=== PATIENT | female | born 1935 | race Caucasian/White ===

== ENCOUNTER 2022-04-26 11:36 | Inpatient (IN) | payer MEDICARE, OTHER ==
[~2022-04-26] VITALS: Ht 165.1 cm; Wt 98.7 kg
[2022-04-26 12:57] VITALS: BP 142/85
[2022-04-26] MEDS ORDERED: POTA-151 PO (13:11)
[2022-04-26] MEDS ORDERED: METO100T5 PO (13:11)
[2022-04-26] MEDS ORDERED: LEVO25TA5 PO (13:11)
[2022-04-26] MEDS ORDERED: DOCU100C16 PO (13:11)
[2022-04-26] MEDS ORDERED: CYAN100050 PO (13:11)
[2022-04-26] MEDS ORDERED: FURO20TA2 PO (13:11)
[2022-04-26] MEDS ORDERED: ATOR80TA59 PO (13:11)
[2022-04-26] MEDS ORDERED: SENN-111 PO (13:11)
[2022-04-26] MEDS ORDERED: ASPI81TA26 PO (13:11)
[2022-04-26] MEDS ORDERED: VITMTA PO (13:11)
[2022-04-26] MEDS ORDERED: ELIQ5TAB PO (13:11)
[2022-04-26] MEDS ORDERED: KEPP1SOL PO (13:11)
[2022-04-26] MEDS ORDERED: HOME MED LIST COMPLETE! XX SCH (13:15)
[2022-04-26 13:38] VITALS: BP 132/79
[2022-04-26] MEDS ORDERED: ONDANSETRON 4MG TAB PO PRN (14:20)
[2022-04-26] MEDS ORDERED: ACETAMINOPHEN TAB 650MG DOSE (2X325MG) PO PRN (14:20)
[2022-04-26 15:42] LABS: INR 1.61; PROTHROMBIN TIME 19.4 SECONDS (12.5-14.5)
[2022-04-26 15:43] LABS: PARTIAL THROMBOPLASTIN TIME 44.6 SECONDS (24.8-34.2)
[2022-04-26] MEDS: REMEDY PHYTOPLEX Z-GUARD PASTE 113GM TUBE (FROM STOREROOM PRODUCT) TOP SCH ×2 (16:00→20:45)
[2022-04-26] MEDS: PANTOPRAZOLE 40MG TAB (PROTONIX) PO SCH ×2 (17:31→20:44)
[2022-04-26 19:30] VITALS: BP 129/61
[2022-04-26] MEDS: METOPROLOL TARTRATE 100MG TAB PO SCH (20:44)
[2022-04-26] MEDS: levETIRAcetam ORAL SOLUTION 500MG/5ML UDC PO SCH (20:44)
[2022-04-26] MEDS: ATORVASTATIN 20 MG TAB PO SCH (20:44)
[2022-04-26] MEDS: APIXABAN 5 MG TAB (ELIQUIS) PO SCH (20:45)
[2022-04-27 05:21] VITALS: BP 120/80
[2022-04-27] MEDS: LEVOTHYROXINE 25MCG TABLET (0.025MG) PO SCH (05:39)
[2022-04-27 06:17] LABS: BASO # 0.1 10^3/uL (0.0-0.2); BASO % 0.7 % (0.0-1.0); EOS # 0.3 10^3/uL (0.0-0.5); EOS % 2.1 % (0.0-3.0); HEMATOCRIT 41.3 % (36.0-47.0); HEMOGLOBIN 13.2 g/dl (12.0-15.5); LYMPH # 2.7 10^3/uL (1.5-5.0); LYMPH % 21.6 % (24.0-44.0); MEAN CORPUSCULAR HEMOGLOBIN 31.2 pg (27.0-33.0); MEAN CORPUSCULAR VOLUME 97.6 fl (80.0-96.0); MONO # 1.4 10^3/uL (0.0-0.8); MONO % 10.9 % (2.0-8.0); NEUTROPHILS % 64.2 % (36.0-66.0); PLATELET COUNT, AUTOMATED 288 10^3/uL (150-450); RED BLOOD COUNT 4.23 10^6/uL (4.00-5.40); WHITE BLOOD COUNT 12.5 10^3/uL (4.0-10.0)
[2022-04-27 06:32] LABS: ALBUMIN 1.7 G/DL (3.2-5.2); ALKALINE PHOSPHATASE 175 U/L (46-116); ALT/SGPT 89 U/L (7.0-40); AST/SGOT 71 U/L (<34); BILIRUBIN,TOTAL 0.8 MG/DL (0.3-1.2); BLOOD UREA NITROGEN 18 MG/DL (9-23); CARBON DIOXIDE LEVEL 30 MMOL/L (20-31); CHLORIDE LEVEL 103 MMOL/L (98-107); CREATININE FOR GFR 0.61 MG/DL (0.55-1.30); GLOMERULAR FILTRATION RATE > 60.0 (>32); GLUCOSE, FASTING 100 MG/DL (74-106); POTASSIUM SERUM 4.2 MMOL/L (3.5-5.1); SODIUM LEVEL 140 MMOL/L (136-145); TOTAL PROTEIN 5.6 G/DL (5.7-8.2)
[2022-04-27] MEDS: CYANOCOBALAMIN 500 MCG TAB PO SCH (08:35)
[2022-04-27] MEDS: METOPROLOL TARTRATE 100MG TAB PO SCH ×2 (08:35→21:19)
[2022-04-27] MEDS: MULTIVITAMINS/MINERALS THERAP 1 TAB PO SCH (08:35)
[2022-04-27] MEDS: levETIRAcetam ORAL SOLUTION 500MG/5ML UDC PO SCH (08:35)
[2022-04-27] MEDS: POTASSIUM CHLORIDE 10MEQ SR TABLET PO SCH (08:36)
[2022-04-27] MEDS: FUROSEMIDE 20 MG TAB PO SCH (08:36)
[2022-04-27] MEDS: ESCITALOPRAM OXALATE 10 MG TAB (LEXAPRO) PO SCH (08:36)
[2022-04-27] MEDS: PANTOPRAZOLE 40MG TAB (PROTONIX) PO SCH ×2 (08:37→21:19)
[2022-04-27] MEDS: ASPIRIN 81MG ENTERIC TABLET PO SCH (08:37)
[2022-04-27] MEDS: APIXABAN 5 MG TAB (ELIQUIS) PO SCH ×2 (08:37→21:20)
[2022-04-27] MEDS: REMEDY PHYTOPLEX Z-GUARD PASTE 113GM TUBE (FROM STOREROOM PRODUCT) TOP SCH ×3 (08:37→21:20)
[2022-04-27 14:00] VITALS: BP 132/75
[2022-04-27] MEDS: FLUTICASONE PROP 0.05% NASAL SPRAY 16 GM (FLONASE) NARES SCH ×2 (15:08→21:20)
[2022-04-27] MEDS: DICLOFENAC EPOLAMINE 1.3% PATCH TOP SCH ×2 (15:41→21:19)
[2022-04-27] MEDS: LACTOBACILLUS ACIDOPHILUS CAP (BACID) PO SCH (17:12)
[2022-04-27] MEDS: ACETAMINOPHEN 500 MG TAB PO SCH ×2 (17:12→21:19)
[2022-04-27] MEDS: SODIUM CHLORIDE NASAL 0.65% SPRAY BTL (OCEAN) SCH ×2 (17:14→21:20)
[2022-04-27] MEDS: SALIVA SUBSTITUTE(MOUTHKOTE) BTL MT SCH ×2 (17:14→21:17)
[2022-04-27] MEDS: CEFEPIME HCL 2 GM in D5W MINI-BAG PLUS 50 ML IV SCH (18:36)
[2022-04-27 20:00] VITALS: BP 132/84
[2022-04-27] MEDS: COMBIVENT RESPIMAT 100-20MCG INHALER 4GM INH SCH (20:30)
[2022-04-27] MEDS: ATORVASTATIN 20 MG TAB PO SCH (21:19)
[2022-04-28] MEDS: levETIRAcetam ORAL SOLUTION 500MG/5ML UDC PO SCH ×2 (00:39→15:17)
[2022-04-28] MEDS: CEFEPIME HCL 2 GM in D5W MINI-BAG PLUS 50 ML IV SCH ×3 (00:39→17:26)
[2022-04-28] MEDS ORDERED: LEVOTHYROXINE 25MCG TABLET (0.025MG) As Ordered ONE (05:26)
[2022-04-28] MEDS: LEVOTHYROXINE 25MCG TABLET (0.025MG) PO SCH (05:36)
[2022-04-28 06:00] VITALS: BP 136/92
[2022-04-28 07:01] LABS: BASO # 0.1 10^3/uL (0.0-0.2); BASO % 0.8 % (0.0-1.0); EOS # 0.3 10^3/uL (0.0-0.5); EOS % 2.3 % (0.0-3.0); HEMATOCRIT 41.3 % (36.0-47.0); LYMPH # 2.6 10^3/uL (1.5-5.0); LYMPH % 21.8 % (24.0-44.0); MEAN CORPUSCULAR HEMOGLOBIN 31.2 pg (27.0-33.0); MEAN CORPUSCULAR HGB CONC 31.5 g/dl (32.0-36.5); MONO # 1.2 10^3/uL (0.0-0.8); MONO % 9.8 % (2.0-8.0); NEUTROPHILS # 7.8 10^3/uL (1.5-8.5); NEUTROPHILS % 64.7 % (36.0-66.0); PLATELET COUNT, AUTOMATED 289 10^3/uL (150-450); RED BLOOD COUNT 4.17 10^6/uL (4.00-5.40); WHITE BLOOD COUNT 12.1 10^3/uL (4.0-10.0)
[2022-04-28] MEDS: COMBIVENT RESPIMAT 100-20MCG INHALER 4GM INH SCH ×3 (07:40→19:55)
[2022-04-28] MEDS: MULTIVITAMINS/MINERALS THERAP 1 TAB PO SCH (08:28)
[2022-04-28] MEDS: LACTOBACILLUS ACIDOPHILUS CAP (BACID) PO SCH ×3 (08:28→17:26)
[2022-04-28] MEDS: CYANOCOBALAMIN 500 MCG TAB PO SCH (08:28)
[2022-04-28] MEDS: POTASSIUM CHLORIDE 10MEQ SR TABLET PO SCH (08:29)
[2022-04-28] MEDS: ASPIRIN 81MG ENTERIC TABLET PO SCH (08:29)
[2022-04-28] MEDS: PANTOPRAZOLE 40MG TAB (PROTONIX) PO SCH ×2 (08:29→21:04)
[2022-04-28] MEDS: FUROSEMIDE 20 MG TAB PO SCH (08:29)
[2022-04-28] MEDS: APIXABAN 5 MG TAB (ELIQUIS) PO SCH ×2 (08:29→21:04)
[2022-04-28] MEDS: ACETAMINOPHEN 500 MG TAB PO SCH ×3 (08:30→21:03)
[2022-04-28] MEDS: METOPROLOL TARTRATE 100MG TAB PO SCH ×2 (08:30→21:03)
[2022-04-28] MEDS: ESCITALOPRAM OXALATE 10 MG TAB (LEXAPRO) PO SCH (08:30)
[2022-04-28] MEDS: SODIUM CHLORIDE NASAL 0.65% SPRAY BTL (OCEAN) SCH ×3 (08:31→21:05)
[2022-04-28] MEDS: DICLOFENAC EPOLAMINE 1.3% PATCH TOP SCH ×2 (08:31→21:05)
[2022-04-28] MEDS: SALIVA SUBSTITUTE(MOUTHKOTE) BTL MT SCH ×4 (08:31→21:05)
[2022-04-28] MEDS: FLUTICASONE PROP 0.05% NASAL SPRAY 16 GM (FLONASE) NARES SCH ×2 (08:31→21:04)
[2022-04-28] MEDS: REMEDY PHYTOPLEX Z-GUARD PASTE 113GM TUBE (FROM STOREROOM PRODUCT) TOP SCH ×3 (08:32→21:04)
[2022-04-28 14:00] VITALS: BP 119/72
[2022-04-28 20:00] VITALS: BP 132/60
[2022-04-28] MEDS: ATORVASTATIN 20 MG TAB PO SCH (21:04)
[2022-04-29] MEDS: levETIRAcetam ORAL SOLUTION 500MG/5ML UDC PO SCH ×3 (00:20→23:08)
[2022-04-29] MEDS: CEFEPIME HCL 2 GM in D5W MINI-BAG PLUS 50 ML IV SCH ×3 (01:24→16:58)
[2022-04-29 06:00] VITALS: BP 133/82
[2022-04-29] MEDS: LEVOTHYROXINE 25MCG TABLET (0.025MG) PO SCH (06:21)
[2022-04-29 06:43] LABS: BASO # 0.1 10^3/uL (0.0-0.2); BASO % 1.3 % (0.0-1.0); EOS # 0.2 10^3/uL (0.0-0.5); EOS % 2.5 % (0.0-3.0); HEMATOCRIT 42.3 % (36.0-47.0); HEMOGLOBIN 13.1 g/dl (12.0-15.5); LYMPH # 2.4 10^3/uL (1.5-5.0); LYMPH % 27.3 % (24.0-44.0); MEAN CORPUSCULAR HEMOGLOBIN 31.1 pg (27.0-33.0); MEAN CORPUSCULAR VOLUME 100.5 fl (80.0-96.0); MONO # 0.8 10^3/uL (0.0-0.8); MONO % 8.9 % (2.0-8.0); NEUTROPHILS # 5.2 10^3/uL (1.5-8.5); NEUTROPHILS % 59.4 % (36.0-66.0); PLATELET COUNT, AUTOMATED 292 10^3/uL (150-450); RED BLOOD COUNT 4.21 10^6/uL (4.00-5.40); WHITE BLOOD COUNT 8.7 10^3/uL (4.0-10.0)
[2022-04-29] MEDS: COMBIVENT RESPIMAT 100-20MCG INHALER 4GM INH SCH ×3 (07:11→20:00)
[2022-04-29 07:19] LABS: BLOOD UREA NITROGEN 20 MG/DL (9-23); CALCIUM LEVEL 8.4 MG/DL (8.3-10.6); CARBON DIOXIDE LEVEL 29 MMOL/L (20-31); CHLORIDE LEVEL 104 MMOL/L (98-107); CREATININE FOR GFR 0.71 MG/DL (0.55-1.30); GLOMERULAR FILTRATION RATE > 60.0 (>32); GLUCOSE, FASTING 98 MG/DL (74-106); POTASSIUM SERUM 5.2 MMOL/L (3.5-5.1); SODIUM LEVEL 140 MMOL/L (136-145)
[2022-04-29] MEDS: ASPIRIN 81MG ENTERIC TABLET PO SCH (08:30)
[2022-04-29] MEDS: LACTOBACILLUS ACIDOPHILUS CAP (BACID) PO SCH ×3 (08:30→16:58)
[2022-04-29] MEDS: CYANOCOBALAMIN 500 MCG TAB PO SCH (08:31)
[2022-04-29] MEDS: APIXABAN 5 MG TAB (ELIQUIS) PO SCH ×2 (08:31→21:25)
[2022-04-29] MEDS: ESCITALOPRAM OXALATE 10 MG TAB (LEXAPRO) PO SCH (08:31)
[2022-04-29] MEDS: ACETAMINOPHEN 500 MG TAB PO SCH ×3 (08:31→21:25)
[2022-04-29] MEDS: METOPROLOL TARTRATE 100MG TAB PO SCH ×2 (08:37→21:24)
[2022-04-29] MEDS: MULTIVITAMINS/MINERALS THERAP 1 TAB PO SCH (08:37)
[2022-04-29] MEDS: FUROSEMIDE 20 MG TAB PO SCH (08:37)
[2022-04-29] MEDS: PANTOPRAZOLE 40MG TAB (PROTONIX) PO SCH ×2 (08:37→21:25)
[2022-04-29] MEDS: FLUTICASONE PROP 0.05% NASAL SPRAY 16 GM (FLONASE) NARES SCH ×2 (08:38→21:26)
[2022-04-29] MEDS: SALIVA SUBSTITUTE(MOUTHKOTE) BTL MT SCH ×4 (08:38→23:08)
[2022-04-29] MEDS: SODIUM CHLORIDE NASAL 0.65% SPRAY BTL (OCEAN) SCH ×3 (08:38→21:26)
[2022-04-29] MEDS: POTASSIUM CHLORIDE 10MEQ SR TABLET PO SCH (08:38)
[2022-04-29] MEDS: DICLOFENAC EPOLAMINE 1.3% PATCH TOP SCH ×2 (08:39→21:24)
[2022-04-29] MEDS: REMEDY PHYTOPLEX Z-GUARD PASTE 113GM TUBE (FROM STOREROOM PRODUCT) TOP SCH ×3 (08:39→21:26)
[2022-04-29] MEDS: PATIROMER SORBITEX CALCIUM 8.4 GM POWDER PACKET (VELTASSA) PO SCH (12:11)
[2022-04-29 14:00] VITALS: BP 136/68
[2022-04-29 21:22] VITALS: BP 163/73
[2022-04-29] MEDS: ATORVASTATIN 20 MG TAB PO SCH (21:25)
[2022-04-30 05:58] VITALS: BP 126/75
[2022-04-30] MEDS: LevoFLOXacin 750 MG TABLET PO SCH (06:02)
[2022-04-30] MEDS: LEVOTHYROXINE 25MCG TABLET (0.025MG) PO SCH (06:02)
[2022-04-30 06:22] LABS: BLOOD UREA NITROGEN 22 MG/DL (9-23); CALCIUM LEVEL 8.3 MG/DL (8.3-10.6); CARBON DIOXIDE LEVEL 33 MMOL/L (20-31); CHLORIDE LEVEL 103 MMOL/L (98-107); CREATININE FOR GFR 0.78 MG/DL (0.55-1.30); GLOMERULAR FILTRATION RATE > 60.0 (>32); GLUCOSE, FASTING 103 MG/DL (74-106); POTASSIUM SERUM 4.5 MMOL/L (3.5-5.1); SODIUM LEVEL 139 MMOL/L (136-145)
[2022-04-30] MEDS: COMBIVENT RESPIMAT 100-20MCG INHALER 4GM INH SCH ×3 (07:15→20:00)
[2022-04-30] MEDS: ASPIRIN 81MG ENTERIC TABLET PO SCH (09:06)
[2022-04-30] MEDS: LACTOBACILLUS ACIDOPHILUS CAP (BACID) PO SCH ×3 (09:06→18:14)
[2022-04-30] MEDS: CYANOCOBALAMIN 500 MCG TAB PO SCH (09:06)
[2022-04-30] MEDS: MULTIVITAMINS/MINERALS THERAP 1 TAB PO SCH (09:06)
[2022-04-30] MEDS: PANTOPRAZOLE 40MG TAB (PROTONIX) PO SCH ×2 (09:07→20:52)
[2022-04-30] MEDS: APIXABAN 5 MG TAB (ELIQUIS) PO SCH ×2 (09:07→20:53)
[2022-04-30] MEDS: ESCITALOPRAM OXALATE 10 MG TAB (LEXAPRO) PO SCH (09:07)
[2022-04-30] MEDS: SALIVA SUBSTITUTE(MOUTHKOTE) BTL MT SCH ×4 (09:08→20:54)
[2022-04-30] MEDS: FUROSEMIDE 20 MG TAB PO SCH (09:08)
[2022-04-30] MEDS: ACETAMINOPHEN 500 MG TAB PO SCH ×3 (09:08→20:52)
[2022-04-30] MEDS: METOPROLOL TARTRATE 100MG TAB PO SCH ×2 (09:08→20:53)
[2022-04-30] MEDS: REMEDY PHYTOPLEX Z-GUARD PASTE 113GM TUBE (FROM STOREROOM PRODUCT) TOP SCH ×3 (09:09→20:53)
[2022-04-30] MEDS: FLUTICASONE PROP 0.05% NASAL SPRAY 16 GM (FLONASE) NARES SCH ×2 (09:09→20:54)
[2022-04-30] MEDS: SODIUM CHLORIDE NASAL 0.65% SPRAY BTL (OCEAN) SCH ×3 (09:09→20:54)
[2022-04-30] MEDS: DICLOFENAC EPOLAMINE 1.3% PATCH TOP SCH ×2 (09:10→20:53)
[2022-04-30] MEDS: PATIROMER SORBITEX CALCIUM 8.4 GM POWDER PACKET (VELTASSA) PO SCH (12:20)
[2022-04-30] MEDS: levETIRAcetam ORAL SOLUTION 500MG/5ML UDC PO SCH ×2 (15:10→23:40)
[2022-04-30 20:49] VITALS: BP 129/70
[2022-04-30] MEDS: ATORVASTATIN 20 MG TAB PO SCH (20:53)
[2022-05-01 05:17] VITALS: BP 150/70
[2022-05-01] MEDS: LevoFLOXacin 750 MG TABLET PO SCH (05:28)
[2022-05-01] MEDS: LEVOTHYROXINE 25MCG TABLET (0.025MG) PO SCH (05:28)
[2022-05-01] MEDS: APIXABAN 5 MG TAB (ELIQUIS) PO SCH ×2 (08:12→20:44)
[2022-05-01] MEDS: ASPIRIN 81MG ENTERIC TABLET PO SCH (08:12)
[2022-05-01] MEDS: PANTOPRAZOLE 40MG TAB (PROTONIX) PO SCH ×2 (08:12→20:43)
[2022-05-01] MEDS: DICLOFENAC EPOLAMINE 1.3% PATCH TOP SCH ×2 (08:13→20:44)
[2022-05-01] MEDS: ESCITALOPRAM OXALATE 10 MG TAB (LEXAPRO) PO SCH (08:13)
[2022-05-01] MEDS: MULTIVITAMINS/MINERALS THERAP 1 TAB PO SCH (08:13)
[2022-05-01] MEDS: FUROSEMIDE 20 MG TAB PO SCH (08:13)
[2022-05-01] MEDS: LACTOBACILLUS ACIDOPHILUS CAP (BACID) PO SCH ×3 (08:13→18:08)
[2022-05-01] MEDS: CYANOCOBALAMIN 500 MCG TAB PO SCH (08:13)
[2022-05-01] MEDS: ACETAMINOPHEN 500 MG TAB PO SCH ×3 (08:14→20:43)
[2022-05-01] MEDS: FLUTICASONE PROP 0.05% NASAL SPRAY 16 GM (FLONASE) NARES SCH ×2 (08:14→20:44)
[2022-05-01] MEDS: REMEDY PHYTOPLEX Z-GUARD PASTE 113GM TUBE (FROM STOREROOM PRODUCT) TOP SCH ×3 (08:14→20:45)
[2022-05-01] MEDS: SODIUM CHLORIDE NASAL 0.65% SPRAY BTL (OCEAN) SCH ×3 (08:14→20:44)
[2022-05-01] MEDS: METOPROLOL TARTRATE 100MG TAB PO SCH ×2 (08:14→20:43)
[2022-05-01] MEDS: SALIVA SUBSTITUTE(MOUTHKOTE) BTL MT SCH ×4 (08:15→20:44)
[2022-05-01] MEDS: COMBIVENT RESPIMAT 100-20MCG INHALER 4GM INH SCH ×3 (11:16→19:40)
[2022-05-01] MEDS: PATIROMER SORBITEX CALCIUM 8.4 GM POWDER PACKET (VELTASSA) PO SCH (12:26)
[2022-05-01 14:00] VITALS: BP 135/68
[2022-05-01] MEDS: levETIRAcetam ORAL SOLUTION 500MG/5ML UDC PO SCH ×2 (15:28→23:18)
[2022-05-01 20:35] VITALS: BP 140/75
[2022-05-01] MEDS: ATORVASTATIN 20 MG TAB PO SCH (20:43)
[2022-05-02] MEDS: LEVOTHYROXINE 25MCG TABLET (0.025MG) PO SCH (05:15)
[2022-05-02] MEDS: LevoFLOXacin 750 MG TABLET PO SCH (05:15)
[2022-05-02 06:00] VITALS: BP 130/80
[2022-05-02 06:22] LABS: BASO # 0.1 10^3/uL (0.0-0.2); BASO % 1.2 % (0.0-1.0); EOS # 0.2 10^3/uL (0.0-0.5); EOS % 2.5 % (0.0-3.0); HEMATOCRIT 42.9 % (36.0-47.0); HEMOGLOBIN 13.3 g/dl (12.0-15.5); LYMPH # 2.4 10^3/uL (1.5-5.0); MEAN CORPUSCULAR HEMOGLOBIN 30.7 pg (27.0-33.0); MEAN CORPUSCULAR VOLUME 99.1 fl (80.0-96.0); MONO # 0.6 10^3/uL (0.0-0.8); MONO % 9.6 % (2.0-8.0); NEUTROPHILS # 3.4 10^3/uL (1.5-8.5); NEUTROPHILS % 50.4 % (36.0-66.0); PLATELET COUNT, AUTOMATED 303 10^3/uL (150-450); RED BLOOD COUNT 4.33 10^6/uL (4.00-5.40); WHITE BLOOD COUNT 6.7 10^3/uL (4.0-10.0)
[2022-05-02 07:17] LABS: BLOOD UREA NITROGEN 14 MG/DL (9-23); CALCIUM LEVEL 8.4 MG/DL (8.3-10.6); CARBON DIOXIDE LEVEL 33 MMOL/L (20-31); CHLORIDE LEVEL 99 MMOL/L (98-107); GLOMERULAR FILTRATION RATE > 60.0 (>32); GLUCOSE, FASTING 98 MG/DL (74-106); POTASSIUM SERUM 4.3 MMOL/L (3.5-5.1); SODIUM LEVEL 137 MMOL/L (136-145)
[2022-05-02] MEDS: COMBIVENT RESPIMAT 100-20MCG INHALER 4GM INH SCH ×3 (08:02→19:49)
[2022-05-02] MEDS: LACTOBACILLUS ACIDOPHILUS CAP (BACID) PO SCH ×3 (08:46→17:35)
[2022-05-02] MEDS: METOPROLOL TARTRATE 100MG TAB PO SCH ×2 (08:46→20:34)
[2022-05-02] MEDS: ASPIRIN 81MG ENTERIC TABLET PO SCH (08:46)
[2022-05-02] MEDS: APIXABAN 5 MG TAB (ELIQUIS) PO SCH ×2 (08:46→20:34)
[2022-05-02] MEDS: MULTIVITAMINS/MINERALS THERAP 1 TAB PO SCH (08:46)
[2022-05-02] MEDS: FUROSEMIDE 20 MG TAB PO SCH (08:46)
[2022-05-02] MEDS: PANTOPRAZOLE 40MG TAB (PROTONIX) PO SCH ×2 (08:46→20:36)
[2022-05-02] MEDS: ESCITALOPRAM OXALATE 10 MG TAB (LEXAPRO) PO SCH (08:46)
[2022-05-02] MEDS: CYANOCOBALAMIN 500 MCG TAB PO SCH (08:47)
[2022-05-02] MEDS: ACETAMINOPHEN 500 MG TAB PO SCH ×3 (08:47→20:35)
[2022-05-02] MEDS: DICLOFENAC EPOLAMINE 1.3% PATCH TOP SCH ×2 (08:47→20:32)
[2022-05-02] MEDS: REMEDY PHYTOPLEX Z-GUARD PASTE 113GM TUBE (FROM STOREROOM PRODUCT) TOP SCH ×3 (08:47→20:36)
[2022-05-02] MEDS: SALIVA SUBSTITUTE(MOUTHKOTE) BTL MT SCH ×4 (08:47→20:35)
[2022-05-02] MEDS: SODIUM CHLORIDE NASAL 0.65% SPRAY BTL (OCEAN) SCH ×3 (08:48→20:35)
[2022-05-02] MEDS: FLUTICASONE PROP 0.05% NASAL SPRAY 16 GM (FLONASE) NARES SCH ×2 (08:48→20:35)
[2022-05-02 14:00] VITALS: BP 140/93
[2022-05-02] MEDS: levETIRAcetam ORAL SOLUTION 500MG/5ML UDC PO SCH ×2 (16:07→23:33)
[2022-05-02 20:00] VITALS: BP 127/62
[2022-05-02] MEDS: ATORVASTATIN 20 MG TAB PO SCH (20:34)
[2022-05-03] MEDS: LEVOTHYROXINE 25MCG TABLET (0.025MG) PO SCH (05:13)
[2022-05-03] MEDS: LevoFLOXacin 750 MG TABLET PO SCH (05:13)
[2022-05-03 06:04] VITALS: BP 131/75
[2022-05-03] MEDS: COMBIVENT RESPIMAT 100-20MCG INHALER 4GM INH SCH ×3 (08:23→20:57)
[2022-05-03] MEDS: MULTIVITAMINS/MINERALS THERAP 1 TAB PO SCH (09:43)
[2022-05-03] MEDS: ESCITALOPRAM OXALATE 10 MG TAB (LEXAPRO) PO SCH (09:43)
[2022-05-03] MEDS: CYANOCOBALAMIN 500 MCG TAB PO SCH (09:43)
[2022-05-03] MEDS: ASPIRIN 81MG ENTERIC TABLET PO SCH (09:43)
[2022-05-03] MEDS: METOPROLOL TARTRATE 100MG TAB PO SCH ×2 (09:44→20:46)
[2022-05-03] MEDS: FUROSEMIDE 20 MG TAB PO SCH (09:44)
[2022-05-03] MEDS: ACETAMINOPHEN 500 MG TAB PO SCH ×3 (09:44→20:45)
[2022-05-03] MEDS: DICLOFENAC EPOLAMINE 1.3% PATCH TOP SCH ×2 (09:45→20:47)
[2022-05-03] MEDS: APIXABAN 5 MG TAB (ELIQUIS) PO SCH ×2 (09:45→20:45)
[2022-05-03] MEDS: SALIVA SUBSTITUTE(MOUTHKOTE) BTL MT SCH ×4 (09:45→20:46)
[2022-05-03] MEDS: LACTOBACILLUS ACIDOPHILUS CAP (BACID) PO SCH ×3 (09:45→17:37)
[2022-05-03] MEDS: PANTOPRAZOLE 40MG TAB (PROTONIX) PO SCH ×2 (09:45→20:45)
[2022-05-03] MEDS: SODIUM CHLORIDE NASAL 0.65% SPRAY BTL (OCEAN) SCH ×3 (09:46→20:47)
[2022-05-03] MEDS: REMEDY PHYTOPLEX Z-GUARD PASTE 113GM TUBE (FROM STOREROOM PRODUCT) TOP SCH ×3 (09:46→20:47)
[2022-05-03] MEDS: FLUTICASONE PROP 0.05% NASAL SPRAY 16 GM (FLONASE) NARES SCH ×2 (09:46→20:47)
[2022-05-03] MEDS: levETIRAcetam ORAL SOLUTION 500MG/5ML UDC PO SCH (15:17)
[2022-05-03 15:46] VITALS: BP 109/61
[2022-05-03 19:50] VITALS: BP 116/56
[2022-05-03] MEDS: SENOKOT S TAB PO PRN (20:45)
[2022-05-03] MEDS: ATORVASTATIN 20 MG TAB PO SCH (20:45)
[2022-05-04] MEDS: levETIRAcetam ORAL SOLUTION 500MG/5ML UDC PO SCH ×2 (00:19→15:13)
[2022-05-04] MEDS: LEVOTHYROXINE 25MCG TABLET (0.025MG) PO SCH (05:43)
[2022-05-04 05:46] VITALS: BP 130/69
[2022-05-04 06:51] LABS: BASO # 0.1 10^3/uL (0.0-0.2); BASO % 1.2 % (0.0-1.0); EOS # 0.1 10^3/uL (0.0-0.5); EOS % 2.2 % (0.0-3.0); HEMATOCRIT 40.6 % (36.0-47.0); HEMOGLOBIN 12.9 g/dl (12.0-15.5); LYMPH # 2.2 10^3/uL (1.5-5.0); LYMPH % 34.4 % (24.0-44.0); MEAN CORPUSCULAR HEMOGLOBIN 31.2 pg (27.0-33.0); MEAN CORPUSCULAR HGB CONC 31.8 g/dl (32.0-36.5); MEAN CORPUSCULAR VOLUME 98.1 fl (80.0-96.0); MONO # 0.7 10^3/uL (0.0-0.8); MONO % 10.8 % (2.0-8.0); NEUTROPHILS # 3.3 10^3/uL (1.5-8.5); NEUTROPHILS % 51.1 % (36.0-66.0); PLATELET COUNT, AUTOMATED 261 10^3/uL (150-450); RED BLOOD COUNT 4.14 10^6/uL (4.00-5.40); WHITE BLOOD COUNT 6.5 10^3/uL (4.0-10.0)
[2022-05-04 07:19] LABS: BLOOD UREA NITROGEN 13 MG/DL (9-23); CALCIUM LEVEL 8.7 MG/DL (8.3-10.6); CARBON DIOXIDE LEVEL 32 MMOL/L (20-31); CHLORIDE LEVEL 99 MMOL/L (98-107); GLOMERULAR FILTRATION RATE > 60.0 (>32); GLUCOSE, FASTING 93 MG/DL (74-106); POTASSIUM SERUM 3.9 MMOL/L (3.5-5.1); SODIUM LEVEL 137 MMOL/L (136-145)
[2022-05-04] MEDS: COMBIVENT RESPIMAT 100-20MCG INHALER 4GM INH SCH ×3 (07:43→19:41)
[2022-05-04] MEDS: ESCITALOPRAM OXALATE 10 MG TAB (LEXAPRO) PO SCH (07:53)
[2022-05-04] MEDS: APIXABAN 5 MG TAB (ELIQUIS) PO SCH ×2 (07:54→21:23)
[2022-05-04] MEDS: LACTOBACILLUS ACIDOPHILUS CAP (BACID) PO SCH ×3 (07:55→17:17)
[2022-05-04] MEDS: METOPROLOL TARTRATE 100MG TAB PO SCH ×2 (07:55→21:23)
[2022-05-04] MEDS: MULTIVITAMINS/MINERALS THERAP 1 TAB PO SCH (07:55)
[2022-05-04] MEDS: CYANOCOBALAMIN 500 MCG TAB PO SCH (07:55)
[2022-05-04] MEDS: ASPIRIN 81MG ENTERIC TABLET PO SCH (07:55)
[2022-05-04] MEDS: PANTOPRAZOLE 40MG TAB (PROTONIX) PO SCH ×2 (07:55→21:22)
[2022-05-04] MEDS: FUROSEMIDE 20 MG TAB PO SCH (07:55)
[2022-05-04] MEDS: FLUTICASONE PROP 0.05% NASAL SPRAY 16 GM (FLONASE) NARES SCH ×2 (07:56→21:23)
[2022-05-04] MEDS: SALIVA SUBSTITUTE(MOUTHKOTE) BTL MT SCH ×4 (07:56→21:23)
[2022-05-04] MEDS: DICLOFENAC EPOLAMINE 1.3% PATCH TOP SCH ×2 (07:56→21:41)
[2022-05-04] MEDS: REMEDY PHYTOPLEX Z-GUARD PASTE 113GM TUBE (FROM STOREROOM PRODUCT) TOP SCH ×3 (07:57→21:24)
[2022-05-04] MEDS: ACETAMINOPHEN 500 MG TAB PO SCH ×3 (07:57→21:00)
[2022-05-04] MEDS: SODIUM CHLORIDE NASAL 0.65% SPRAY BTL (OCEAN) SCH ×3 (07:57→21:24)
[2022-05-04 14:00] VITALS: BP 128/64
[2022-05-04 20:33] VITALS: BP 131/70
[2022-05-04] MEDS: ATORVASTATIN 20 MG TAB PO SCH (21:23)
[2022-05-05] MEDS: levETIRAcetam ORAL SOLUTION 500MG/5ML UDC PO SCH ×3 (00:11→23:51)
[2022-05-05] MEDS: LEVOTHYROXINE 25MCG TABLET (0.025MG) PO SCH (05:51)
[2022-05-05 06:04] VITALS: BP 124/80
[2022-05-05] MEDS: COMBIVENT RESPIMAT 100-20MCG INHALER 4GM INH SCH ×2 (07:42→19:58)
[2022-05-05] MEDS: METOPROLOL TARTRATE 100MG TAB PO SCH ×2 (08:59→21:09)
[2022-05-05] MEDS: ASPIRIN 81MG ENTERIC TABLET PO SCH (08:59)
[2022-05-05] MEDS: LACTOBACILLUS ACIDOPHILUS CAP (BACID) PO SCH ×3 (08:59→17:05)
[2022-05-05] MEDS: MULTIVITAMINS/MINERALS THERAP 1 TAB PO SCH (08:59)
[2022-05-05] MEDS: APIXABAN 5 MG TAB (ELIQUIS) PO SCH ×2 (08:59→21:09)
[2022-05-05] MEDS: PANTOPRAZOLE 40MG TAB (PROTONIX) PO SCH ×2 (08:59→21:10)
[2022-05-05] MEDS: ESCITALOPRAM OXALATE 5MG TABLET (LEXAPRO) PO SCH (08:59)
[2022-05-05] MEDS: CYANOCOBALAMIN 500 MCG TAB PO SCH (08:59)
[2022-05-05] MEDS: ACETAMINOPHEN 500 MG TAB PO SCH ×3 (09:00→21:11)
[2022-05-05] MEDS: REMEDY PHYTOPLEX Z-GUARD PASTE 113GM TUBE (FROM STOREROOM PRODUCT) TOP SCH ×3 (09:00→21:11)
[2022-05-05] MEDS: FUROSEMIDE 20 MG TAB PO SCH (09:00)
[2022-05-05] MEDS: DICLOFENAC EPOLAMINE 1.3% PATCH TOP SCH ×2 (09:01→21:10)
[2022-05-05] MEDS: SALIVA SUBSTITUTE(MOUTHKOTE) BTL MT SCH ×4 (09:01→21:11)
[2022-05-05] MEDS: SODIUM CHLORIDE NASAL 0.65% SPRAY BTL (OCEAN) SCH ×3 (09:01→21:11)
[2022-05-05] MEDS: FLUTICASONE PROP 0.05% NASAL SPRAY 16 GM (FLONASE) NARES SCH ×2 (09:01→21:11)
[2022-05-05 14:00] VITALS: BP 108/55
[2022-05-05 20:06] VITALS: BP 125/60
[2022-05-05] MEDS: ATORVASTATIN 20 MG TAB PO SCH (21:10)
[2022-05-06] MEDS: LEVOTHYROXINE 25MCG TABLET (0.025MG) PO SCH (05:28)
[2022-05-06 05:45] VITALS: BP 112/61
[2022-05-06 06:07] LABS: BASO # 0.1 10^3/uL (0.0-0.2); BASO % 0.8 % (0.0-1.0); EOS # 0.2 10^3/uL (0.0-0.5); EOS % 2.1 % (0.0-3.0); HEMATOCRIT 40.1 % (36.0-47.0); HEMOGLOBIN 12.7 g/dl (12.0-15.5); LYMPH # 2.4 10^3/uL (1.5-5.0); LYMPH % 33.6 % (24.0-44.0); MEAN CORPUSCULAR HEMOGLOBIN 31.4 pg (27.0-33.0); MEAN CORPUSCULAR HGB CONC 31.7 g/dl (32.0-36.5); MEAN CORPUSCULAR VOLUME 99.3 fl (80.0-96.0); MONO # 0.8 10^3/uL (0.0-0.8); MONO % 10.9 % (2.0-8.0); NEUTROPHILS # 3.8 10^3/uL (1.5-8.5); NEUTROPHILS % 52.2 % (36.0-66.0); PLATELET COUNT, AUTOMATED 213 10^3/uL (150-450); RED BLOOD COUNT 4.04 10^6/uL (4.00-5.40); WHITE BLOOD COUNT 7.2 10^3/uL (4.0-10.0)
[2022-05-06 06:39] LABS: BLOOD UREA NITROGEN 17 MG/DL (9-23); CALCIUM LEVEL 8.3 MG/DL (8.3-10.6); CARBON DIOXIDE LEVEL 32 MMOL/L (20-31); CHLORIDE LEVEL 100 MMOL/L (98-107); CREATININE FOR GFR 0.75 MG/DL (0.55-1.30); GLOMERULAR FILTRATION RATE > 60.0 (>32); GLUCOSE, FASTING 106 MG/DL (74-106); POTASSIUM SERUM 3.7 MMOL/L (3.5-5.1); SODIUM LEVEL 139 MMOL/L (136-145)
[2022-05-06] MEDS: COMBIVENT RESPIMAT 100-20MCG INHALER 4GM INH SCH ×3 (08:00→19:54)
[2022-05-06] MEDS: SODIUM CHLORIDE NASAL 0.65% SPRAY BTL (OCEAN) SCH ×3 (09:00→21:00)
[2022-05-06] MEDS: REMEDY PHYTOPLEX Z-GUARD PASTE 113GM TUBE (FROM STOREROOM PRODUCT) TOP SCH ×3 (09:00→21:08)
[2022-05-06] MEDS: FLUTICASONE PROP 0.05% NASAL SPRAY 16 GM (FLONASE) NARES SCH ×2 (09:00→21:00)
[2022-05-06] MEDS: ACETAMINOPHEN 500 MG TAB PO SCH ×3 (09:00→21:00)
[2022-05-06] MEDS: ASPIRIN 81MG ENTERIC TABLET PO SCH (09:07)
[2022-05-06] MEDS: ESCITALOPRAM OXALATE 5MG TABLET (LEXAPRO) PO SCH (09:07)
[2022-05-06] MEDS: LACTOBACILLUS ACIDOPHILUS CAP (BACID) PO SCH ×3 (09:07→17:49)
[2022-05-06] MEDS: APIXABAN 5 MG TAB (ELIQUIS) PO SCH ×2 (09:08→21:06)
[2022-05-06] MEDS: METOPROLOL TARTRATE 100MG TAB PO SCH ×2 (09:08→21:06)
[2022-05-06] MEDS: CYANOCOBALAMIN 500 MCG TAB PO SCH (09:08)
[2022-05-06] MEDS: FUROSEMIDE 20 MG TAB PO SCH (09:08)
[2022-05-06] MEDS: PANTOPRAZOLE 40MG TAB (PROTONIX) PO SCH ×2 (09:08→21:07)
[2022-05-06] MEDS: MULTIVITAMINS/MINERALS THERAP 1 TAB PO SCH (09:08)
[2022-05-06] MEDS: DICLOFENAC EPOLAMINE 1.3% PATCH TOP SCH ×2 (09:09→21:08)
[2022-05-06] MEDS: SALIVA SUBSTITUTE(MOUTHKOTE) BTL MT SCH ×4 (09:09→21:07)
[2022-05-06 14:02] VITALS: BP 115/59
[2022-05-06] MEDS: levETIRAcetam ORAL SOLUTION 500MG/5ML UDC PO SCH (16:01)
[2022-05-06 20:00] VITALS: BP 110/58
[2022-05-06] MEDS: ATORVASTATIN 20 MG TAB PO SCH (21:06)
[2022-05-07] MEDS: levETIRAcetam ORAL SOLUTION 500MG/5ML UDC PO SCH ×3 (00:15→23:13)
[2022-05-07] MEDS: LEVOTHYROXINE 25MCG TABLET (0.025MG) PO SCH (05:27)
[2022-05-07 06:00] VITALS: BP 118/58
[2022-05-07] MEDS: COMBIVENT RESPIMAT 100-20MCG INHALER 4GM INH SCH ×2 (08:05→20:21)
[2022-05-07] MEDS: LACTOBACILLUS ACIDOPHILUS CAP (BACID) PO SCH ×3 (08:08→19:00)
[2022-05-07] MEDS: SALIVA SUBSTITUTE(MOUTHKOTE) BTL MT SCH ×4 (08:09→21:00)
[2022-05-07] MEDS: ASPIRIN 81MG ENTERIC TABLET PO SCH (08:09)
[2022-05-07] MEDS: APIXABAN 5 MG TAB (ELIQUIS) PO SCH ×2 (08:11→21:21)
[2022-05-07] MEDS: FUROSEMIDE 40 MG TAB PO SCH ×2 (08:12→09:00)
[2022-05-07] MEDS: ESCITALOPRAM OXALATE 5MG TABLET (LEXAPRO) PO SCH (08:13)
[2022-05-07] MEDS: MULTIVITAMINS/MINERALS THERAP 1 TAB PO SCH (08:13)
[2022-05-07] MEDS: PANTOPRAZOLE 40MG TAB (PROTONIX) PO SCH ×2 (08:13→21:21)
[2022-05-07] MEDS: METOPROLOL TARTRATE 100MG TAB PO SCH ×2 (08:13→21:00)
[2022-05-07] MEDS: SODIUM CHLORIDE NASAL 0.65% SPRAY BTL (OCEAN) SCH ×3 (08:14→21:00)
[2022-05-07] MEDS: CYANOCOBALAMIN 500 MCG TAB PO SCH (08:14)
[2022-05-07] MEDS: ACETAMINOPHEN 500 MG TAB PO SCH ×3 (08:14→21:00)
[2022-05-07] MEDS: FLUTICASONE PROP 0.05% NASAL SPRAY 16 GM (FLONASE) NARES SCH ×2 (08:15→21:00)
[2022-05-07] MEDS: DICLOFENAC EPOLAMINE 1.3% PATCH TOP SCH ×2 (08:15→21:22)
[2022-05-07] MEDS: REMEDY PHYTOPLEX Z-GUARD PASTE 113GM TUBE (FROM STOREROOM PRODUCT) TOP SCH ×3 (08:15→21:22)
[2022-05-07 14:00] VITALS: BP 100/59
[2022-05-07 20:00] VITALS: BP 88/56
[2022-05-07 21:10] VITALS: BP 90/60
[2022-05-07] MEDS: ATORVASTATIN 20 MG TAB PO SCH (21:21)
[2022-05-07 23:00] VITALS: BP 90/58
[2022-05-08 04:05] VITALS: BP 112/62
[2022-05-08] MEDS: LEVOTHYROXINE 25MCG TABLET (0.025MG) PO SCH (05:19)
[2022-05-08 06:00] VITALS: BP 112/62
[2022-05-08] MEDS: COMBIVENT RESPIMAT 100-20MCG INHALER 4GM INH SCH ×3 (08:00→19:09)
[2022-05-08] MEDS: FUROSEMIDE 40 MG TAB PO SCH ×2 (09:00→10:08)
[2022-05-08] MEDS: METOPROLOL TARTRATE 100MG TAB PO SCH ×2 (09:00→20:51)
[2022-05-08] MEDS: SALIVA SUBSTITUTE(MOUTHKOTE) BTL MT SCH ×4 (10:07→20:51)
[2022-05-08] MEDS: ASPIRIN 81MG ENTERIC TABLET PO SCH (10:07)
[2022-05-08] MEDS: APIXABAN 5 MG TAB (ELIQUIS) PO SCH ×2 (10:07→20:49)
[2022-05-08] MEDS: LACTOBACILLUS ACIDOPHILUS CAP (BACID) PO SCH ×3 (10:07→17:48)
[2022-05-08] MEDS: ACETAMINOPHEN 500 MG TAB PO SCH ×3 (10:08→21:00)
[2022-05-08] MEDS: ESCITALOPRAM OXALATE 5MG TABLET (LEXAPRO) PO SCH (10:08)
[2022-05-08] MEDS: CYANOCOBALAMIN 500 MCG TAB PO SCH (10:09)
[2022-05-08] MEDS: PANTOPRAZOLE 40MG TAB (PROTONIX) PO SCH ×2 (10:09→20:49)
[2022-05-08] MEDS: MULTIVITAMINS/MINERALS THERAP 1 TAB PO SCH (10:09)
[2022-05-08] MEDS: FLUTICASONE PROP 0.05% NASAL SPRAY 16 GM (FLONASE) NARES SCH ×2 (10:11→20:50)
[2022-05-08] MEDS: SODIUM CHLORIDE NASAL 0.65% SPRAY BTL (OCEAN) SCH ×3 (10:11→20:50)
[2022-05-08] MEDS: DICLOFENAC EPOLAMINE 1.3% PATCH TOP SCH ×2 (10:12→20:50)
[2022-05-08] MEDS: REMEDY PHYTOPLEX Z-GUARD PASTE 113GM TUBE (FROM STOREROOM PRODUCT) TOP SCH ×3 (10:12→21:00)
[2022-05-08 14:33] VITALS: BP 131/69
[2022-05-08] MEDS: levETIRAcetam ORAL SOLUTION 500MG/5ML UDC PO SCH ×2 (15:08→23:08)
[2022-05-08 20:00] VITALS: BP_SYST 102; BP_SYST 88; BP_DIAS 51; BP_DIAS 60
[2022-05-08] MEDS ORDERED: NS 1,000 ML IV SCH (20:20)
[2022-05-08] MEDS: ATORVASTATIN 20 MG TAB PO SCH (20:50)
[2022-05-09 05:55] VITALS: BP 122/58
[2022-05-09] MEDS: LEVOTHYROXINE 25MCG TABLET (0.025MG) PO SCH (06:18)
[2022-05-09] MEDS: COMBIVENT RESPIMAT 100-20MCG INHALER 4GM INH SCH ×3 (07:23→21:13)
[2022-05-09] MEDS: DICLOFENAC EPOLAMINE 1.3% PATCH TOP SCH ×2 (08:25→20:16)
[2022-05-09] MEDS: LACTOBACILLUS ACIDOPHILUS CAP (BACID) PO SCH ×3 (08:25→17:04)
[2022-05-09] MEDS: CYANOCOBALAMIN 500 MCG TAB PO SCH (08:26)
[2022-05-09] MEDS: ACETAMINOPHEN 500 MG TAB PO SCH ×4 (08:26→20:15)
[2022-05-09] MEDS: ASPIRIN 81MG ENTERIC TABLET PO SCH (08:26)
[2022-05-09] MEDS: APIXABAN 5 MG TAB (ELIQUIS) PO SCH ×2 (08:26→20:14)
[2022-05-09] MEDS: MULTIVITAMINS/MINERALS THERAP 1 TAB PO SCH (08:26)
[2022-05-09] MEDS: PANTOPRAZOLE 40MG TAB (PROTONIX) PO SCH ×2 (08:26→20:14)
[2022-05-09] MEDS: ESCITALOPRAM OXALATE 5MG TABLET (LEXAPRO) PO SCH (08:27)
[2022-05-09] MEDS: SALIVA SUBSTITUTE(MOUTHKOTE) BTL MT SCH ×4 (08:27→20:16)
[2022-05-09] MEDS: METOPROLOL TARTRATE 100MG TAB PO SCH ×2 (08:27→20:15)
[2022-05-09] MEDS: FUROSEMIDE 40 MG TAB PO SCH (08:27)
[2022-05-09] MEDS: REMEDY PHYTOPLEX Z-GUARD PASTE 113GM TUBE (FROM STOREROOM PRODUCT) TOP SCH ×3 (08:28→20:16)
[2022-05-09] MEDS: FLUTICASONE PROP 0.05% NASAL SPRAY 16 GM (FLONASE) NARES SCH ×2 (08:28→20:16)
[2022-05-09] MEDS: SODIUM CHLORIDE NASAL 0.65% SPRAY BTL (OCEAN) SCH ×3 (08:28→20:15)
[2022-05-09 10:35] LABS: BASO # 0.1 10^3/uL (0.0-0.2); EOS # 0.1 10^3/uL (0.0-0.5); EOS % 1.6 % (0.0-3.0); HEMATOCRIT 40.4 % (36.0-47.0); HEMOGLOBIN 12.7 g/dl (12.0-15.5); LYMPH # 2.4 10^3/uL (1.5-5.0); LYMPH % 33.9 % (24.0-44.0); MEAN CORPUSCULAR HEMOGLOBIN 31.5 pg (27.0-33.0); MEAN CORPUSCULAR HGB CONC 31.4 g/dl (32.0-36.5); MEAN CORPUSCULAR VOLUME 100.2 fl (80.0-96.0); MONO # 0.8 10^3/uL (0.0-0.8); MONO % 11.6 % (2.0-8.0); NEUTROPHILS # 3.7 10^3/uL (1.5-8.5); NEUTROPHILS % 51.8 % (36.0-66.0); PLATELET COUNT, AUTOMATED 178 10^3/uL (150-450); RED BLOOD COUNT 4.03 10^6/uL (4.00-5.40); WHITE BLOOD COUNT 7.1 10^3/uL (4.0-10.0)
[2022-05-09 11:12] LABS: BLOOD UREA NITROGEN 13 MG/DL (9-23); CARBON DIOXIDE LEVEL 26 MMOL/L (20-31); CHLORIDE LEVEL 101 MMOL/L (98-107); CREATININE FOR GFR 0.68 MG/DL (0.55-1.30); GLOMERULAR FILTRATION RATE > 60.0 (>32); GLUCOSE, FASTING 99 MG/DL (74-106); POTASSIUM SERUM 4.2 MMOL/L (3.5-5.1); SODIUM LEVEL 137 MMOL/L (136-145)
[2022-05-09 14:03] VITALS: BP 124/62
[2022-05-09] MEDS: levETIRAcetam ORAL SOLUTION 500MG/5ML UDC PO SCH ×2 (15:38→23:55)
[2022-05-09 20:00] VITALS: BP 132/82
[2022-05-09] MEDS: ATORVASTATIN 20 MG TAB PO SCH (20:15)
[2022-05-10 05:42] VITALS: BP 145/88
[2022-05-10] MEDS: LEVOTHYROXINE 25MCG TABLET (0.025MG) PO SCH (06:15)
[2022-05-10] MEDS: COMBIVENT RESPIMAT 100-20MCG INHALER 4GM INH SCH ×3 (08:13→20:10)
[2022-05-10] MEDS: ASPIRIN 81MG ENTERIC TABLET PO SCH (08:18)
[2022-05-10] MEDS: ESCITALOPRAM OXALATE 5MG TABLET (LEXAPRO) PO SCH (08:18)
[2022-05-10] MEDS: CYANOCOBALAMIN 500 MCG TAB PO SCH (08:18)
[2022-05-10] MEDS: MULTIVITAMINS/MINERALS THERAP 1 TAB PO SCH (08:18)
[2022-05-10] MEDS: APIXABAN 5 MG TAB (ELIQUIS) PO SCH ×2 (08:19→20:27)
[2022-05-10] MEDS: LACTOBACILLUS ACIDOPHILUS CAP (BACID) PO SCH ×3 (08:19→16:56)
[2022-05-10] MEDS: PANTOPRAZOLE 40MG TAB (PROTONIX) PO SCH ×2 (08:19→20:28)
[2022-05-10] MEDS: FUROSEMIDE 40 MG TAB PO SCH (08:19)
[2022-05-10] MEDS: ACETAMINOPHEN 500 MG TAB PO SCH ×3 (08:19→20:28)
[2022-05-10] MEDS: SALIVA SUBSTITUTE(MOUTHKOTE) BTL MT SCH ×4 (08:20→20:29)
[2022-05-10] MEDS: DICLOFENAC EPOLAMINE 1.3% PATCH TOP SCH ×2 (08:20→20:27)
[2022-05-10] MEDS: FLUTICASONE PROP 0.05% NASAL SPRAY 16 GM (FLONASE) NARES SCH ×2 (08:21→20:29)
[2022-05-10] MEDS: METOPROLOL TARTRATE 100MG TAB PO SCH ×3 (08:21→21:00)
[2022-05-10] MEDS: REMEDY PHYTOPLEX Z-GUARD PASTE 113GM TUBE (FROM STOREROOM PRODUCT) TOP SCH ×3 (08:21→20:29)
[2022-05-10] MEDS: SODIUM CHLORIDE NASAL 0.65% SPRAY BTL (OCEAN) SCH ×3 (08:21→20:29)
[2022-05-10 14:30] VITALS: BP 104/57
[2022-05-10] MEDS: levETIRAcetam ORAL SOLUTION 500MG/5ML UDC PO SCH ×2 (16:56→23:57)
[2022-05-10 20:00] VITALS: BP 102/74
[2022-05-10] MEDS: ATORVASTATIN 20 MG TAB PO SCH (20:27)
[2022-05-11 06:00] VITALS: BP 101/59
[2022-05-11] MEDS: LEVOTHYROXINE 25MCG TABLET (0.025MG) PO SCH (06:16)
[2022-05-11 07:29] LABS: BASO # 0.1 10^3/uL (0.0-0.2); BASO % 0.8 % (0.0-1.0); EOS # 0.2 10^3/uL (0.0-0.5); EOS % 2.3 % (0.0-3.0); HEMATOCRIT 37.3 % (36.0-47.0); LYMPH # 2.1 10^3/uL (1.5-5.0); LYMPH % 29.6 % (24.0-44.0); MEAN CORPUSCULAR HEMOGLOBIN 31.4 pg (27.0-33.0); MEAN CORPUSCULAR HGB CONC 32.2 g/dl (32.0-36.5); MEAN CORPUSCULAR VOLUME 97.6 fl (80.0-96.0); MONO # 0.7 10^3/uL (0.0-0.8); MONO % 9.9 % (2.0-8.0); NEUTROPHILS # 4.1 10^3/uL (1.5-8.5); NEUTROPHILS % 57.3 % (36.0-66.0); PLATELET COUNT, AUTOMATED 164 10^3/uL (150-450); RED BLOOD COUNT 3.82 10^6/uL (4.00-5.40); WHITE BLOOD COUNT 7.1 10^3/uL (4.0-10.0)
[2022-05-11 07:57] LABS: BLOOD UREA NITROGEN 14 MG/DL (9-23); CALCIUM LEVEL 8.4 MG/DL (8.3-10.6); CARBON DIOXIDE LEVEL 35 MMOL/L (20-31); CHLORIDE LEVEL 102 MMOL/L (98-107); GLOMERULAR FILTRATION RATE > 60.0 (>32); GLUCOSE, FASTING 91 MG/DL (74-106); POTASSIUM SERUM 4.1 MMOL/L (3.5-5.1); SODIUM LEVEL 140 MMOL/L (136-145)
[2022-05-11] MEDS: ACETAMINOPHEN 500 MG TAB PO SCH ×3 (09:00→20:25)
[2022-05-11] MEDS: FUROSEMIDE 40 MG TAB PO SCH (09:00)
[2022-05-11] MEDS: METOPROLOL TARTRATE 100MG TAB PO SCH ×2 (09:00→20:26)
[2022-05-11] MEDS: ASPIRIN 81MG ENTERIC TABLET PO SCH (09:07)
[2022-05-11] MEDS: PANTOPRAZOLE 40MG TAB (PROTONIX) PO SCH ×2 (09:07→20:25)
[2022-05-11] MEDS: DICLOFENAC EPOLAMINE 1.3% PATCH TOP SCH ×2 (09:07→20:26)
[2022-05-11] MEDS: CYANOCOBALAMIN 500 MCG TAB PO SCH (09:07)
[2022-05-11] MEDS: MULTIVITAMINS/MINERALS THERAP 1 TAB PO SCH (09:08)
[2022-05-11] MEDS: APIXABAN 5 MG TAB (ELIQUIS) PO SCH ×2 (09:08→20:26)
[2022-05-11] MEDS: ESCITALOPRAM OXALATE 5MG TABLET (LEXAPRO) PO SCH (09:08)
[2022-05-11] MEDS: LACTOBACILLUS ACIDOPHILUS CAP (BACID) PO SCH ×3 (09:11→18:00)
[2022-05-11] MEDS: SODIUM CHLORIDE NASAL 0.65% SPRAY BTL (OCEAN) SCH ×3 (09:12→20:27)
[2022-05-11] MEDS: SALIVA SUBSTITUTE(MOUTHKOTE) BTL MT SCH ×4 (09:12→20:25)
[2022-05-11] MEDS: FLUTICASONE PROP 0.05% NASAL SPRAY 16 GM (FLONASE) NARES SCH ×2 (09:12→20:26)
[2022-05-11] MEDS: REMEDY PHYTOPLEX Z-GUARD PASTE 113GM TUBE (FROM STOREROOM PRODUCT) TOP SCH ×3 (09:13→20:29)
[2022-05-11] MEDS: COMBIVENT RESPIMAT 100-20MCG INHALER 4GM INH SCH ×3 (09:30→20:17)
[2022-05-11 14:00] VITALS: BP 145/81
[2022-05-11] MEDS: levETIRAcetam ORAL SOLUTION 500MG/5ML UDC PO SCH ×2 (14:29→23:44)
[2022-05-11] MEDS: ATORVASTATIN 20 MG TAB PO SCH (20:26)
[2022-05-11 21:08] VITALS: BP 116/63
[2022-05-12 05:56] VITALS: BP 112/57
[2022-05-12] MEDS: LEVOTHYROXINE 25MCG TABLET (0.025MG) PO SCH (06:49)
[2022-05-12] MEDS: COMBIVENT RESPIMAT 100-20MCG INHALER 4GM INH SCH ×3 (07:34→20:00)
[2022-05-12] MEDS: MULTIVITAMINS/MINERALS THERAP 1 TAB PO SCH (08:32)
[2022-05-12] MEDS: CYANOCOBALAMIN 500 MCG TAB PO SCH (08:32)
[2022-05-12] MEDS: DICLOFENAC EPOLAMINE 1.3% PATCH TOP SCH ×2 (08:32→21:54)
[2022-05-12] MEDS: LACTOBACILLUS ACIDOPHILUS CAP (BACID) PO SCH ×3 (08:32→17:39)
[2022-05-12] MEDS: PANTOPRAZOLE 40MG TAB (PROTONIX) PO SCH ×2 (08:32→21:53)
[2022-05-12] MEDS: ASPIRIN 81MG ENTERIC TABLET PO SCH (08:32)
[2022-05-12] MEDS: ESCITALOPRAM OXALATE 5MG TABLET (LEXAPRO) PO SCH (08:32)
[2022-05-12] MEDS: APIXABAN 5 MG TAB (ELIQUIS) PO SCH ×2 (08:32→21:53)
[2022-05-12] MEDS: FUROSEMIDE 40 MG TAB PO SCH (08:33)
[2022-05-12] MEDS: METOPROLOL TARTRATE 100MG TAB PO SCH ×2 (08:33→21:53)
[2022-05-12] MEDS: FLUTICASONE PROP 0.05% NASAL SPRAY 16 GM (FLONASE) NARES SCH ×2 (08:34→21:00)
[2022-05-12] MEDS: SALIVA SUBSTITUTE(MOUTHKOTE) BTL MT SCH ×4 (08:34→21:54)
[2022-05-12] MEDS: SODIUM CHLORIDE NASAL 0.65% SPRAY BTL (OCEAN) SCH ×3 (08:34→21:00)
[2022-05-12] MEDS: REMEDY PHYTOPLEX Z-GUARD PASTE 113GM TUBE (FROM STOREROOM PRODUCT) TOP SCH ×3 (08:35→21:55)
[2022-05-12] MEDS: ACETAMINOPHEN 500 MG TAB PO SCH ×3 (08:35→21:00)
[2022-05-12 14:00] VITALS: BP 102/54
[2022-05-12] MEDS: levETIRAcetam ORAL SOLUTION 500MG/5ML UDC PO SCH (16:00)
[2022-05-12 20:00] VITALS: BP 121/63
[2022-05-12] MEDS: SENOKOT S TAB PO PRN (21:53)
[2022-05-12] MEDS: ATORVASTATIN 20 MG TAB PO SCH (21:53)
[2022-05-13] MEDS: levETIRAcetam ORAL SOLUTION 500MG/5ML UDC PO SCH ×2 (00:21→15:26)
[2022-05-13] MEDS: LEVOTHYROXINE 25MCG TABLET (0.025MG) PO SCH (05:20)
[2022-05-13 06:00] VITALS: BP 143/73
[2022-05-13 06:20] LABS: BASO # 0.1 10^3/uL (0.0-0.2); EOS # 0.2 10^3/uL (0.0-0.5); EOS % 3.9 % (0.0-3.0); HEMATOCRIT 38.3 % (36.0-47.0); HEMOGLOBIN 12.1 g/dl (12.0-15.5); LYMPH # 2.5 10^3/uL (1.5-5.0); LYMPH % 42.3 % (24.0-44.0); MEAN CORPUSCULAR HEMOGLOBIN 31.5 pg (27.0-33.0); MEAN CORPUSCULAR HGB CONC 31.6 g/dl (32.0-36.5); MEAN CORPUSCULAR VOLUME 99.7 fl (80.0-96.0); MONO # 0.7 10^3/uL (0.0-0.8); MONO % 12.6 % (2.0-8.0); NEUTROPHILS # 2.4 10^3/uL (1.5-8.5); PLATELET COUNT, AUTOMATED 167 10^3/uL (150-450); RED BLOOD COUNT 3.84 10^6/uL (4.00-5.40); WHITE BLOOD COUNT 5.9 10^3/uL (4.0-10.0)
[2022-05-13 06:40] LABS: BLOOD UREA NITROGEN 14 MG/DL (9-23); CALCIUM LEVEL 8.4 MG/DL (8.3-10.6); CARBON DIOXIDE LEVEL 33 MMOL/L (20-31); CHLORIDE LEVEL 103 MMOL/L (98-107); GLOMERULAR FILTRATION RATE > 60.0 (>32); GLUCOSE, FASTING 93 MG/DL (74-106); POTASSIUM SERUM 3.6 MMOL/L (3.5-5.1); SODIUM LEVEL 141 MMOL/L (136-145)
[2022-05-13] MEDS: COMBIVENT RESPIMAT 100-20MCG INHALER 4GM INH SCH ×3 (07:24→20:22)
[2022-05-13] MEDS: LACTOBACILLUS ACIDOPHILUS CAP (BACID) PO SCH ×3 (08:58→17:31)
[2022-05-13] MEDS: CYANOCOBALAMIN 500 MCG TAB PO SCH (08:58)
[2022-05-13] MEDS: ESCITALOPRAM OXALATE 5MG TABLET (LEXAPRO) PO SCH (08:58)
[2022-05-13] MEDS: PANTOPRAZOLE 40MG TAB (PROTONIX) PO SCH ×2 (08:58→21:21)
[2022-05-13] MEDS: ASPIRIN 81MG ENTERIC TABLET PO SCH (08:59)
[2022-05-13] MEDS: ACETAMINOPHEN 500 MG TAB PO SCH ×3 (08:59→21:00)
[2022-05-13] MEDS: MULTIVITAMINS/MINERALS THERAP 1 TAB PO SCH (08:59)
[2022-05-13] MEDS: METOPROLOL TARTRATE 100MG TAB PO SCH (08:59)
[2022-05-13] MEDS: APIXABAN 5 MG TAB (ELIQUIS) PO SCH ×2 (08:59→21:21)
[2022-05-13] MEDS: FUROSEMIDE 40 MG TAB PO SCH ×2 (09:00→12:41)
[2022-05-13] MEDS: FLUTICASONE PROP 0.05% NASAL SPRAY 16 GM (FLONASE) NARES SCH ×2 (09:00→21:22)
[2022-05-13] MEDS: REMEDY PHYTOPLEX Z-GUARD PASTE 113GM TUBE (FROM STOREROOM PRODUCT) TOP SCH ×3 (09:00→21:22)
[2022-05-13] MEDS: SODIUM CHLORIDE NASAL 0.65% SPRAY BTL (OCEAN) SCH ×3 (09:00→21:24)
[2022-05-13] MEDS: SALIVA SUBSTITUTE(MOUTHKOTE) BTL MT SCH ×4 (09:01→21:21)
[2022-05-13] MEDS: DICLOFENAC EPOLAMINE 1.3% PATCH TOP SCH ×2 (09:01→21:22)
[2022-05-13] MEDS: METOPROLOL TART 50 MG TAB PO SCH ×2 (12:41→17:31)
[2022-05-13 14:00] VITALS: BP 138/73
[2022-05-13 20:00] VITALS: BP 148/76
[2022-05-13] MEDS ORDERED: METOPROLOL TARTRATE 100MG TAB PO SCH (21:00)
[2022-05-13] MEDS: ATORVASTATIN 20 MG TAB PO SCH (21:21)
[2022-05-14] MEDS: levETIRAcetam ORAL SOLUTION 500MG/5ML UDC PO SCH ×3 (00:13→23:58)
[2022-05-14 05:45] VITALS: BP 108/72
[2022-05-14] MEDS: METOPROLOL TART 50 MG TAB PO SCH ×5 (06:00→23:58)
[2022-05-14] MEDS: LEVOTHYROXINE 25MCG TABLET (0.025MG) PO SCH (06:07)
[2022-05-14] MEDS: COMBIVENT RESPIMAT 100-20MCG INHALER 4GM INH SCH ×3 (07:17→21:52)
[2022-05-14] MEDS: LACTOBACILLUS ACIDOPHILUS CAP (BACID) PO SCH ×3 (08:17→17:45)
[2022-05-14] MEDS: MULTIVITAMINS/MINERALS THERAP 1 TAB PO SCH (08:17)
[2022-05-14] MEDS: CYANOCOBALAMIN 500 MCG TAB PO SCH (08:17)
[2022-05-14] MEDS: ASPIRIN 81MG ENTERIC TABLET PO SCH (08:17)
[2022-05-14] MEDS: ESCITALOPRAM OXALATE 5MG TABLET (LEXAPRO) PO SCH (08:17)
[2022-05-14] MEDS: DICLOFENAC EPOLAMINE 1.3% PATCH TOP SCH ×2 (08:18→20:38)
[2022-05-14] MEDS: ACETAMINOPHEN 500 MG TAB PO SCH ×3 (08:18→20:39)
[2022-05-14] MEDS: APIXABAN 5 MG TAB (ELIQUIS) PO SCH ×2 (08:18→20:38)
[2022-05-14] MEDS: FLUTICASONE PROP 0.05% NASAL SPRAY 16 GM (FLONASE) NARES SCH ×2 (08:19→20:39)
[2022-05-14] MEDS: PANTOPRAZOLE 40MG TAB (PROTONIX) PO SCH ×2 (08:19→20:38)
[2022-05-14] MEDS: SODIUM CHLORIDE NASAL 0.65% SPRAY BTL (OCEAN) SCH ×3 (08:19→20:39)
[2022-05-14] MEDS: SALIVA SUBSTITUTE(MOUTHKOTE) BTL MT SCH ×4 (08:19→20:38)
[2022-05-14] MEDS: REMEDY PHYTOPLEX Z-GUARD PASTE 113GM TUBE (FROM STOREROOM PRODUCT) TOP SCH ×3 (08:20→20:40)
[2022-05-14] MEDS: FUROSEMIDE 40 MG TAB PO SCH (12:30)
[2022-05-14 13:34] VITALS: BP 112/59
[2022-05-14 20:00] VITALS: BP 110/74
[2022-05-14] MEDS: ATORVASTATIN 20 MG TAB PO SCH (20:38)
[2022-05-14 23:58] VITALS: BP 102/65
[2022-05-15] MEDS: LEVOTHYROXINE 25MCG TABLET (0.025MG) PO SCH (05:57)
[2022-05-15] MEDS: METOPROLOL TART 50 MG TAB PO SCH (05:58)
[2022-05-15 06:00] VITALS: BP 112/68
[2022-05-15] MEDS: COMBIVENT RESPIMAT 100-20MCG INHALER 4GM INH SCH ×3 (07:21→20:50)
[2022-05-15] MEDS: MULTIVITAMINS/MINERALS THERAP 1 TAB PO SCH (07:34)
[2022-05-15] MEDS: DICLOFENAC EPOLAMINE 1.3% PATCH TOP SCH ×2 (07:35→20:58)
[2022-05-15] MEDS: LACTOBACILLUS ACIDOPHILUS CAP (BACID) PO SCH ×3 (07:35→17:19)
[2022-05-15] MEDS: ACETAMINOPHEN 500 MG TAB PO SCH ×3 (07:35→20:57)
[2022-05-15] MEDS: CYANOCOBALAMIN 500 MCG TAB PO SCH (07:35)
[2022-05-15] MEDS: PANTOPRAZOLE 40MG TAB (PROTONIX) PO SCH ×2 (07:36→20:56)
[2022-05-15] MEDS: ASPIRIN 81MG ENTERIC TABLET PO SCH (07:36)
[2022-05-15] MEDS: APIXABAN 5 MG TAB (ELIQUIS) PO SCH ×2 (07:36→20:56)
[2022-05-15] MEDS: SALIVA SUBSTITUTE(MOUTHKOTE) BTL MT SCH ×4 (07:36→20:57)
[2022-05-15] MEDS: ESCITALOPRAM OXALATE 5MG TABLET (LEXAPRO) PO SCH (07:36)
[2022-05-15] MEDS: SODIUM CHLORIDE NASAL 0.65% SPRAY BTL (OCEAN) SCH ×3 (07:36→20:57)
[2022-05-15] MEDS: FLUTICASONE PROP 0.05% NASAL SPRAY 16 GM (FLONASE) NARES SCH ×2 (07:37→20:57)
[2022-05-15] MEDS: REMEDY PHYTOPLEX Z-GUARD PASTE 113GM TUBE (FROM STOREROOM PRODUCT) TOP SCH ×3 (07:37→20:58)
[2022-05-15] MEDS: FUROSEMIDE 40 MG TAB PO SCH (12:04)
[2022-05-15 13:53] VITALS: BP 116/61
[2022-05-15] MEDS: METOPROLOL TART 25 MG TABLET PO SCH ×2 (14:29→22:00)
[2022-05-15] MEDS: levETIRAcetam ORAL SOLUTION 500MG/5ML UDC PO SCH ×2 (14:29→23:53)
[2022-05-15 20:00] VITALS: BP 117/57
[2022-05-15] MEDS: ATORVASTATIN 20 MG TAB PO SCH (20:56)
[2022-05-16] MEDS: LEVOTHYROXINE 25MCG TABLET (0.025MG) PO SCH (05:33)
[2022-05-16] MEDS: METOPROLOL TART 25 MG TABLET PO SCH ×3 (05:33→22:00)
[2022-05-16 06:00] VITALS: BP 106/57
[2022-05-16 06:38] LABS: BASO # 0.1 10^3/uL (0.0-0.2); EOS # 0.2 10^3/uL (0.0-0.5); EOS % 3.7 % (0.0-3.0); HEMATOCRIT 37.9 % (36.0-47.0); LYMPH # 2.9 10^3/uL (1.5-5.0); LYMPH % 48.4 % (24.0-44.0); MEAN CORPUSCULAR HEMOGLOBIN 31.9 pg (27.0-33.0); MEAN CORPUSCULAR HGB CONC 31.7 g/dl (32.0-36.5); MEAN CORPUSCULAR VOLUME 100.8 fl (80.0-96.0); MONO # 0.7 10^3/uL (0.0-0.8); MONO % 12.1 % (2.0-8.0); NEUTROPHILS % 34.5 % (36.0-66.0); PLATELET COUNT, AUTOMATED 169 10^3/uL (150-450); RED BLOOD COUNT 3.76 10^6/uL (4.00-5.40); WHITE BLOOD COUNT 5.9 10^3/uL (4.0-10.0)
[2022-05-16 06:49] LABS: BLOOD UREA NITROGEN 13 MG/DL (9-23); CALCIUM LEVEL 8.3 MG/DL (8.3-10.6); CARBON DIOXIDE LEVEL 34 MMOL/L (20-31); CHLORIDE LEVEL 101 MMOL/L (98-107); CREATININE FOR GFR 0.87 MG/DL (0.55-1.30); GLOMERULAR FILTRATION RATE > 60.0 (>32); GLUCOSE, FASTING 110 MG/DL (74-106); POTASSIUM SERUM 3.7 MMOL/L (3.5-5.1); SODIUM LEVEL 141 MMOL/L (136-145)
[2022-05-16] MEDS: COMBIVENT RESPIMAT 100-20MCG INHALER 4GM INH SCH ×3 (08:00→20:00)
[2022-05-16] MEDS: PANTOPRAZOLE 40MG TAB (PROTONIX) PO SCH (08:32)
[2022-05-16] MEDS: DICLOFENAC EPOLAMINE 1.3% PATCH TOP SCH ×2 (08:32→20:15)
[2022-05-16] MEDS: APIXABAN 5 MG TAB (ELIQUIS) PO SCH ×2 (08:32→20:15)
[2022-05-16] MEDS: ASPIRIN 81MG ENTERIC TABLET PO SCH (08:32)
[2022-05-16] MEDS: ACETAMINOPHEN 500 MG TAB PO SCH ×3 (08:32→20:15)
[2022-05-16] MEDS: LACTOBACILLUS ACIDOPHILUS CAP (BACID) PO SCH ×3 (08:32→17:07)
[2022-05-16] MEDS: SALIVA SUBSTITUTE(MOUTHKOTE) BTL MT SCH ×4 (08:32→20:15)
[2022-05-16] MEDS: ESCITALOPRAM OXALATE 5MG TABLET (LEXAPRO) PO SCH (08:32)
[2022-05-16] MEDS: MULTIVITAMINS/MINERALS THERAP 1 TAB PO SCH (08:32)
[2022-05-16] MEDS: CYANOCOBALAMIN 500 MCG TAB PO SCH (08:32)
[2022-05-16] MEDS: FLUTICASONE PROP 0.05% NASAL SPRAY 16 GM (FLONASE) NARES SCH ×2 (08:33→20:16)
[2022-05-16] MEDS: REMEDY PHYTOPLEX Z-GUARD PASTE 113GM TUBE (FROM STOREROOM PRODUCT) TOP SCH ×3 (08:33→20:17)
[2022-05-16] MEDS: SODIUM CHLORIDE NASAL 0.65% SPRAY BTL (OCEAN) SCH ×3 (08:33→20:16)
[2022-05-16] MEDS: FUROSEMIDE 40 MG TAB PO SCH (11:31)
[2022-05-16 14:00] VITALS: BP 123/63
[2022-05-16] MEDS: levETIRAcetam ORAL SOLUTION 500MG/5ML UDC PO SCH ×2 (14:01→23:11)
[2022-05-16 19:52] VITALS: BP 125/61
[2022-05-16] MEDS: ATORVASTATIN 20 MG TAB PO SCH (20:15)
[2022-05-17 05:55] VITALS: BP 106/57
[2022-05-17] MEDS: LEVOTHYROXINE 25MCG TABLET (0.025MG) PO SCH (05:59)
[2022-05-17] MEDS: METOPROLOL TART 25 MG TABLET PO SCH ×3 (06:00→20:35)
[2022-05-17] MEDS: COMBIVENT RESPIMAT 100-20MCG INHALER 4GM INH SCH ×3 (08:00→20:02)
[2022-05-17] MEDS: REMEDY PHYTOPLEX Z-GUARD PASTE 113GM TUBE (FROM STOREROOM PRODUCT) TOP SCH ×3 (08:09→20:34)
[2022-05-17] MEDS: ASPIRIN 81MG ENTERIC TABLET PO SCH (08:58)
[2022-05-17] MEDS: PANTOPRAZOLE 40MG TAB (PROTONIX) PO SCH (08:58)
[2022-05-17] MEDS: ESCITALOPRAM OXALATE 5MG TABLET (LEXAPRO) PO SCH (08:58)
[2022-05-17] MEDS: APIXABAN 5 MG TAB (ELIQUIS) PO SCH ×2 (08:59→20:32)
[2022-05-17] MEDS: DICLOFENAC EPOLAMINE 1.3% PATCH TOP SCH ×2 (08:59→20:34)
[2022-05-17] MEDS: CYANOCOBALAMIN 500 MCG TAB PO SCH (08:59)
[2022-05-17] MEDS: LACTOBACILLUS ACIDOPHILUS CAP (BACID) PO SCH ×3 (08:59→16:46)
[2022-05-17] MEDS: MULTIVITAMINS/MINERALS THERAP 1 TAB PO SCH (08:59)
[2022-05-17] MEDS: SODIUM CHLORIDE NASAL 0.65% SPRAY BTL (OCEAN) SCH ×3 (09:00→20:33)
[2022-05-17] MEDS: ACETAMINOPHEN 500 MG TAB PO SCH ×3 (09:00→20:33)
[2022-05-17] MEDS: FLUTICASONE PROP 0.05% NASAL SPRAY 16 GM (FLONASE) NARES SCH ×2 (09:00→20:33)
[2022-05-17] MEDS: SALIVA SUBSTITUTE(MOUTHKOTE) BTL MT SCH ×4 (09:00→20:33)
[2022-05-17] MEDS: FUROSEMIDE 40 MG TAB PO SCH (12:01)
[2022-05-17 14:00] VITALS: BP 107/59
[2022-05-17] MEDS: levETIRAcetam ORAL SOLUTION 500MG/5ML UDC PO SCH (16:45)
[2022-05-17 20:00] VITALS: BP 129/72
[2022-05-17] MEDS: ATORVASTATIN 20 MG TAB PO SCH (20:33)
[2022-05-18] MEDS: levETIRAcetam ORAL SOLUTION 500MG/5ML UDC PO SCH ×3 (00:48→23:56)
[2022-05-18] MEDS: METOPROLOL TART 25 MG TABLET PO SCH ×3 (05:46→20:22)
[2022-05-18] MEDS: LEVOTHYROXINE 25MCG TABLET (0.025MG) PO SCH (05:46)
[2022-05-18 06:00] VITALS: BP 106/56
[2022-05-18] MEDS: ACETAMINOPHEN 500 MG TAB PO SCH ×3 (08:30→20:19)
[2022-05-18] MEDS: MULTIVITAMINS/MINERALS THERAP 1 TAB PO SCH (08:30)
[2022-05-18] MEDS: LACTOBACILLUS ACIDOPHILUS CAP (BACID) PO SCH ×3 (08:30→17:06)
[2022-05-18] MEDS: PANTOPRAZOLE 40MG TAB (PROTONIX) PO SCH (08:30)
[2022-05-18] MEDS: APIXABAN 5 MG TAB (ELIQUIS) PO SCH (08:31)
[2022-05-18] MEDS: CYANOCOBALAMIN 500 MCG TAB PO SCH (08:31)
[2022-05-18] MEDS: ASPIRIN 81MG ENTERIC TABLET PO SCH (08:32)
[2022-05-18] MEDS: SODIUM CHLORIDE NASAL 0.65% SPRAY BTL (OCEAN) SCH ×3 (08:32→20:20)
[2022-05-18] MEDS: FLUTICASONE PROP 0.05% NASAL SPRAY 16 GM (FLONASE) NARES SCH ×2 (08:32→20:20)
[2022-05-18] MEDS: REMEDY PHYTOPLEX Z-GUARD PASTE 113GM TUBE (FROM STOREROOM PRODUCT) TOP SCH ×3 (08:32→20:20)
[2022-05-18] MEDS: ESCITALOPRAM OXALATE 5MG TABLET (LEXAPRO) PO SCH (08:33)
[2022-05-18] MEDS: DICLOFENAC EPOLAMINE 1.3% PATCH TOP SCH (08:33)
[2022-05-18] MEDS: SALIVA SUBSTITUTE(MOUTHKOTE) BTL MT SCH ×4 (08:34→20:20)
[2022-05-18] MEDS: COMBIVENT RESPIMAT 100-20MCG INHALER 4GM INH SCH ×3 (09:15→20:20)
[2022-05-18 10:58] LABS: BASO # 0.1 10^3/uL (0.0-0.2); BASO % 1.1 % (0.0-1.0); EOS # 0.2 10^3/uL (0.0-0.5); EOS % 3.6 % (0.0-3.0); HEMATOCRIT 36.6 % (36.0-47.0); HEMOGLOBIN 11.7 g/dl (12.0-15.5); LYMPH # 2.3 10^3/uL (1.5-5.0); LYMPH % 42.1 % (24.0-44.0); MEAN CORPUSCULAR HEMOGLOBIN 32.3 pg (27.0-33.0); MEAN CORPUSCULAR VOLUME 101.1 fl (80.0-96.0); MONO # 0.6 10^3/uL (0.0-0.8); MONO % 11.4 % (2.0-8.0); NEUTROPHILS # 2.2 10^3/uL (1.5-8.5); NEUTROPHILS % 41.6 % (36.0-66.0); RED BLOOD COUNT 3.62 10^6/uL (4.00-5.40); WHITE BLOOD COUNT 5.4 10^3/uL (4.0-10.0)
[2022-05-18 11:31] LABS: BLOOD UREA NITROGEN 11 MG/DL (9-23); CALCIUM LEVEL 8.1 MG/DL (8.3-10.6); CARBON DIOXIDE LEVEL 29 MMOL/L (20-31); CHLORIDE LEVEL 102 MMOL/L (98-107); CREATININE FOR GFR 0.65 MG/DL (0.55-1.30); GLOMERULAR FILTRATION RATE > 60.0 (>32); GLUCOSE, FASTING 124 MG/DL (74-106); SODIUM LEVEL 138 MMOL/L (136-145)
[2022-05-18] MEDS: FUROSEMIDE 40 MG TAB PO SCH (11:48)
[2022-05-18 11:54] LABS: PLATELET COUNT, AUTOMATED 62 10^3/uL (150-450)
[2022-05-18 14:52] VITALS: BP 121/65
[2022-05-18] MEDS: SUCRALFATE SUSP 1GM/10ML UD PO SCH (17:06)
[2022-05-18 20:00] VITALS: BP 111/53
[2022-05-18] MEDS: ATORVASTATIN 20 MG TAB PO SCH (20:19)
[2022-05-18] MEDS: APIXABAN 2.5 MG TAB (ELIQUIS) PO SCH (20:19)
[2022-05-19 06:00] VITALS: BP 136/68
[2022-05-19] MEDS: LEVOTHYROXINE 25MCG TABLET (0.025MG) PO SCH (06:13)
[2022-05-19] MEDS: METOPROLOL TART 25 MG TABLET PO SCH ×3 (06:14→20:46)
[2022-05-19 06:51] LABS: BASO # 0.1 10^3/uL (0.0-0.2); BASO % 0.9 % (0.0-1.0); EOS # 0.4 10^3/uL (0.0-0.5); EOS % 6.2 % (0.0-3.0); HEMATOCRIT 36.3 % (36.0-47.0); HEMOGLOBIN 11.7 g/dl (12.0-15.5); LYMPH # 2.6 10^3/uL (1.5-5.0); MEAN CORPUSCULAR HEMOGLOBIN 32.1 pg (27.0-33.0); MEAN CORPUSCULAR HGB CONC 32.2 g/dl (32.0-36.5); MEAN CORPUSCULAR VOLUME 99.7 fl (80.0-96.0); MONO # 0.8 10^3/uL (0.0-0.8); MONO % 12.2 % (2.0-8.0); NEUTROPHILS # 2.5 10^3/uL (1.5-8.5); NEUTROPHILS % 39.5 % (36.0-66.0); PLATELET COUNT, AUTOMATED 143 10^3/uL (150-450); RED BLOOD COUNT 3.64 10^6/uL (4.00-5.40); WHITE BLOOD COUNT 6.4 10^3/uL (4.0-10.0)
[2022-05-19] MEDS: COMBIVENT RESPIMAT 100-20MCG INHALER 4GM INH SCH ×3 (07:22→20:25)
[2022-05-19] MEDS: MULTIVITAMINS/MINERALS THERAP 1 TAB PO SCH (08:29)
[2022-05-19] MEDS: SUCRALFATE SUSP 1GM/10ML UD PO SCH ×3 (08:29→17:06)
[2022-05-19] MEDS: ACETAMINOPHEN 500 MG TAB PO SCH ×3 (08:29→20:43)
[2022-05-19] MEDS: LACTOBACILLUS ACIDOPHILUS CAP (BACID) PO SCH ×3 (08:29→17:06)
[2022-05-19] MEDS: REMEDY PHYTOPLEX Z-GUARD PASTE 113GM TUBE (FROM STOREROOM PRODUCT) TOP SCH ×3 (08:30→20:44)
[2022-05-19] MEDS: ESCITALOPRAM OXALATE 10 MG TAB (LEXAPRO) PO SCH (08:30)
[2022-05-19] MEDS: APIXABAN 2.5 MG TAB (ELIQUIS) PO SCH ×2 (08:30→20:42)
[2022-05-19] MEDS: SODIUM CHLORIDE NASAL 0.65% SPRAY BTL (OCEAN) SCH ×3 (08:30→20:43)
[2022-05-19] MEDS: CYANOCOBALAMIN 500 MCG TAB PO SCH (08:30)
[2022-05-19] MEDS: SALIVA SUBSTITUTE(MOUTHKOTE) BTL MT SCH ×4 (08:30→20:43)
[2022-05-19] MEDS: FLUTICASONE PROP 0.05% NASAL SPRAY 16 GM (FLONASE) NARES SCH ×2 (08:31→20:43)
[2022-05-19] MEDS: FUROSEMIDE 40 MG TAB PO SCH (12:08)
[2022-05-19 14:00] VITALS: BP 109/58
[2022-05-19] MEDS: levETIRAcetam ORAL SOLUTION 500MG/5ML UDC PO SCH (15:36)
[2022-05-19 20:00] VITALS: BP 136/70
[2022-05-19] MEDS: ATORVASTATIN 20 MG TAB PO SCH (20:43)
[2022-05-20] MEDS: levETIRAcetam ORAL SOLUTION 500MG/5ML UDC PO SCH ×3 (00:03→23:46)
[2022-05-20 05:11] VITALS: BP 112/66
[2022-05-20] MEDS: LEVOTHYROXINE 25MCG TABLET (0.025MG) PO SCH (05:12)
[2022-05-20] MEDS: METOPROLOL TART 25 MG TABLET PO SCH ×3 (05:13→21:58)
[2022-05-20] MEDS: COMBIVENT RESPIMAT 100-20MCG INHALER 4GM INH SCH ×3 (07:24→20:00)
[2022-05-20] MEDS: ACETAMINOPHEN 500 MG TAB PO SCH ×4 (08:40→21:00)
[2022-05-20] MEDS: LACTOBACILLUS ACIDOPHILUS CAP (BACID) PO SCH ×3 (08:40→17:33)
[2022-05-20] MEDS: ESCITALOPRAM OXALATE 10 MG TAB (LEXAPRO) PO SCH (08:40)
[2022-05-20] MEDS: CYANOCOBALAMIN 500 MCG TAB PO SCH (08:40)
[2022-05-20] MEDS: MULTIVITAMINS/MINERALS THERAP 1 TAB PO SCH (08:40)
[2022-05-20] MEDS: APIXABAN 2.5 MG TAB (ELIQUIS) PO SCH ×2 (08:40→20:48)
[2022-05-20] MEDS: SALIVA SUBSTITUTE(MOUTHKOTE) BTL MT SCH ×4 (08:41→20:48)
[2022-05-20] MEDS: REMEDY PHYTOPLEX Z-GUARD PASTE 113GM TUBE (FROM STOREROOM PRODUCT) TOP SCH ×3 (08:41→20:48)
[2022-05-20] MEDS: SODIUM CHLORIDE NASAL 0.65% SPRAY BTL (OCEAN) SCH ×3 (08:44→20:48)
[2022-05-20] MEDS: SUCRALFATE SUSP 1GM/10ML UD PO SCH ×3 (08:44→15:26)
[2022-05-20] MEDS: FLUTICASONE PROP 0.05% NASAL SPRAY 16 GM (FLONASE) NARES SCH ×2 (08:45→20:48)
[2022-05-20 11:15] LABS: BASO # 0.1 10^3/uL (0.0-0.2); BASO % 0.9 % (0.0-1.0); EOS # 0.3 10^3/uL (0.0-0.5); EOS % 4.9 % (0.0-3.0); HEMATOCRIT 36.8 % (36.0-47.0); HEMOGLOBIN 11.6 g/dl (12.0-15.5); LYMPH # 2.6 10^3/uL (1.5-5.0); LYMPH % 38.2 % (24.0-44.0); MEAN CORPUSCULAR HEMOGLOBIN 31.4 pg (27.0-33.0); MEAN CORPUSCULAR HGB CONC 31.5 g/dl (32.0-36.5); MEAN CORPUSCULAR VOLUME 99.7 fl (80.0-96.0); MONO # 0.8 10^3/uL (0.0-0.8); MONO % 10.8 % (2.0-8.0); NEUTROPHILS # 3.1 10^3/uL (1.5-8.5); NEUTROPHILS % 45.1 % (36.0-66.0); PLATELET COUNT, AUTOMATED 151 10^3/uL (150-450); RED BLOOD COUNT 3.69 10^6/uL (4.00-5.40); WHITE BLOOD COUNT 6.9 10^3/uL (4.0-10.0)
[2022-05-20 11:44] LABS: BLOOD UREA NITROGEN 13 MG/DL (9-23); CALCIUM LEVEL 8.1 MG/DL (8.3-10.6); CARBON DIOXIDE LEVEL 35 MMOL/L (20-31); CHLORIDE LEVEL 103 MMOL/L (98-107); GLOMERULAR FILTRATION RATE > 60.0 (>32); GLUCOSE, FASTING 105 MG/DL (74-106); POTASSIUM SERUM 3.8 MMOL/L (3.5-5.1); SODIUM LEVEL 141 MMOL/L (136-145)
[2022-05-20] MEDS: FUROSEMIDE 40 MG TAB PO SCH (12:27)
[2022-05-20 13:59] VITALS: BP 103/56
[2022-05-20 20:00] VITALS: BP 102/61
[2022-05-20] MEDS: ATORVASTATIN 20 MG TAB PO SCH (20:47)
[2022-05-21] MEDS: LEVOTHYROXINE 25MCG TABLET (0.025MG) PO SCH (05:38)
[2022-05-21] MEDS: METOPROLOL TART 25 MG TABLET PO SCH ×3 (05:38→21:51)
[2022-05-21 06:00] VITALS: BP 118/63
[2022-05-21] MEDS: COMBIVENT RESPIMAT 100-20MCG INHALER 4GM INH SCH ×3 (08:00→20:47)
[2022-05-21] MEDS: ACETAMINOPHEN 500 MG TAB PO SCH ×3 (09:00→21:00)
[2022-05-21] MEDS: SALIVA SUBSTITUTE(MOUTHKOTE) BTL MT SCH ×4 (09:00→21:00)
[2022-05-21] MEDS: SUCRALFATE SUSP 1GM/10ML UD PO SCH ×3 (10:30→17:17)
[2022-05-21] MEDS: LACTOBACILLUS ACIDOPHILUS CAP (BACID) PO SCH ×3 (10:30→17:17)
[2022-05-21] MEDS: MULTIVITAMINS/MINERALS THERAP 1 TAB PO SCH (10:31)
[2022-05-21] MEDS: APIXABAN 2.5 MG TAB (ELIQUIS) PO SCH ×2 (10:31→20:41)
[2022-05-21] MEDS: ESCITALOPRAM OXALATE 10 MG TAB (LEXAPRO) PO SCH (10:31)
[2022-05-21] MEDS: CYANOCOBALAMIN 500 MCG TAB PO SCH (10:32)
[2022-05-21] MEDS: SODIUM CHLORIDE NASAL 0.65% SPRAY BTL (OCEAN) SCH ×3 (10:32→21:00)
[2022-05-21] MEDS: FLUTICASONE PROP 0.05% NASAL SPRAY 16 GM (FLONASE) NARES SCH ×2 (10:33→21:00)
[2022-05-21] MEDS: REMEDY PHYTOPLEX Z-GUARD PASTE 113GM TUBE (FROM STOREROOM PRODUCT) TOP SCH ×3 (10:33→20:42)
[2022-05-21] MEDS: FUROSEMIDE 40 MG TAB PO SCH (12:49)
[2022-05-21 14:00] VITALS: BP 125/79
[2022-05-21] MEDS: levETIRAcetam ORAL SOLUTION 500MG/5ML UDC PO SCH ×2 (14:51→23:49)
[2022-05-21 20:00] VITALS: BP 115/56
[2022-05-21] MEDS: ATORVASTATIN 20 MG TAB PO SCH (20:41)
[2022-05-22] MEDS: LEVOTHYROXINE 25MCG TABLET (0.025MG) PO SCH (05:51)
[2022-05-22] MEDS: METOPROLOL TART 25 MG TABLET PO SCH ×3 (05:52→20:46)
[2022-05-22 06:00] VITALS: BP 138/69
[2022-05-22] MEDS: COMBIVENT RESPIMAT 100-20MCG INHALER 4GM INH SCH ×3 (08:00→20:00)
[2022-05-22] MEDS: ESCITALOPRAM OXALATE 10 MG TAB (LEXAPRO) PO SCH (08:04)
[2022-05-22] MEDS: SUCRALFATE SUSP 1GM/10ML UD PO SCH ×3 (08:04→17:36)
[2022-05-22] MEDS: MULTIVITAMINS/MINERALS THERAP 1 TAB PO SCH (08:04)
[2022-05-22] MEDS: SALIVA SUBSTITUTE(MOUTHKOTE) BTL MT SCH ×4 (08:04→21:00)
[2022-05-22] MEDS: LACTOBACILLUS ACIDOPHILUS CAP (BACID) PO SCH ×3 (08:04→17:36)
[2022-05-22] MEDS: APIXABAN 2.5 MG TAB (ELIQUIS) PO SCH ×2 (08:04→20:47)
[2022-05-22] MEDS: SODIUM CHLORIDE NASAL 0.65% SPRAY BTL (OCEAN) SCH ×3 (08:05→21:00)
[2022-05-22] MEDS: REMEDY PHYTOPLEX Z-GUARD PASTE 113GM TUBE (FROM STOREROOM PRODUCT) TOP SCH ×3 (08:05→21:00)
[2022-05-22] MEDS: FLUTICASONE PROP 0.05% NASAL SPRAY 16 GM (FLONASE) NARES SCH ×2 (08:05→21:00)
[2022-05-22] MEDS: CYANOCOBALAMIN 500 MCG TAB PO SCH (08:05)
[2022-05-22] MEDS: ACETAMINOPHEN 500 MG TAB PO SCH ×3 (09:00→21:00)
[2022-05-22] MEDS: FUROSEMIDE 40 MG TAB PO SCH (12:10)
[2022-05-22 13:51] VITALS: BP 94/55
[2022-05-22] MEDS: levETIRAcetam ORAL SOLUTION 500MG/5ML UDC PO SCH (15:16)
[2022-05-22 20:00] VITALS: BP 118/60
[2022-05-22] MEDS: ATORVASTATIN 20 MG TAB PO SCH (20:47)
[2022-05-23] MEDS: levETIRAcetam ORAL SOLUTION 500MG/5ML UDC PO SCH ×2 (00:03)
[2022-05-23] MEDS ORDERED: levETIRAcetam 250MG TABLET (KEPPRA) PO ONE (01:00)
[2022-05-23] MEDS ORDERED: levETIRAcetam INJection 500 MG in D5W MINI-BAG PLUS 100 ML IV ONE (02:00)
[2022-05-23 06:00] VITALS: BP 117/61
[2022-05-23] MEDS: LEVOTHYROXINE 25MCG TABLET (0.025MG) PO SCH (06:27)
[2022-05-23 06:28] VITALS: BP 118/63
[2022-05-23] MEDS: METOPROLOL TART 25 MG TABLET PO SCH (06:28)
[2022-05-23] MEDS: SUCRALFATE SUSP 1GM/10ML UD PO SCH ×2 (07:30→12:00)
[2022-05-23] MEDS: COMBIVENT RESPIMAT 100-20MCG INHALER 4GM INH SCH (08:37)
[2022-05-23] MEDS: ACETAMINOPHEN 500 MG TAB PO SCH (09:00)
[2022-05-23] MEDS: REMEDY PHYTOPLEX Z-GUARD PASTE 113GM TUBE (FROM STOREROOM PRODUCT) TOP SCH (09:37)
[2022-05-23] MEDS: FLUTICASONE PROP 0.05% NASAL SPRAY 16 GM (FLONASE) NARES SCH (09:37)
[2022-05-23] MEDS: SODIUM CHLORIDE NASAL 0.65% SPRAY BTL (OCEAN) SCH (09:37)
[2022-05-23] MEDS: SALIVA SUBSTITUTE(MOUTHKOTE) BTL MT SCH (09:38)
[2022-05-23] MEDS ORDERED: ELIQ2.5T PO (09:42)
[2022-05-23] MEDS ORDERED: COMBAER6 INH (09:42)
[2022-05-23] MEDS ORDERED: LEVE15SO2 PO ×2 (09:42)
[2022-05-23] MEDS ORDERED: LEVO25TA5 PO (09:42)
[2022-05-23] MEDS ORDERED: Sodium Chloride Nasal Spray (09:42)
[2022-05-23] MEDS ORDERED: FLUTISP NARES (09:42)
[2022-05-23] MEDS ORDERED: FURO40TA2 PO (09:42)
[2022-05-23] MEDS ORDERED: LEXA1TAB PO (09:42)
[2022-05-23] MEDS ORDERED: METO1TAB87 PO (09:42)
[2022-05-23] MEDS ORDERED: SENN-52 PO (09:42)
[2022-05-23] MEDS ORDERED: SUCR1ORA PO (09:42)
[2022-05-23] MEDS ORDERED: MOUKOT60 MT (09:42)
[2022-05-23] MEDS: LACTOBACILLUS ACIDOPHILUS CAP (BACID) PO SCH ×2 (09:44→12:12)
[2022-05-23] MEDS: MULTIVITAMINS/MINERALS THERAP 1 TAB PO SCH (09:45)
[2022-05-23] MEDS: ESCITALOPRAM OXALATE 10 MG TAB (LEXAPRO) PO SCH (09:45)
[2022-05-23] MEDS: APIXABAN 2.5 MG TAB (ELIQUIS) PO SCH (09:45)
[2022-05-23] MEDS: CYANOCOBALAMIN 500 MCG TAB PO SCH (09:45)
[2022-05-23 10:36] LABS: BASO # 0.1 10^3/uL (0.0-0.2); BASO % 0.6 % (0.0-1.0); EOS # 0.3 10^3/uL (0.0-0.5); EOS % 2.3 % (0.0-3.0); HEMATOCRIT 36.8 % (36.0-47.0); HEMOGLOBIN 11.9 g/dl (12.0-15.5); LYMPH # 2.8 10^3/uL (1.5-5.0); LYMPH % 25.2 % (24.0-44.0); MEAN CORPUSCULAR HEMOGLOBIN 31.7 pg (27.0-33.0); MEAN CORPUSCULAR HGB CONC 32.3 g/dl (32.0-36.5); MEAN CORPUSCULAR VOLUME 98.1 fl (80.0-96.0); NEUTROPHILS # 6.1 10^3/uL (1.5-8.5); NEUTROPHILS % 55.5 % (36.0-66.0); PLATELET COUNT, AUTOMATED 146 10^3/uL (150-450); RED BLOOD COUNT 3.75 10^6/uL (4.00-5.40)
[2022-05-23 11:03] LABS: MONO # 1.8 10^3/uL (0.0-0.8)
[2022-05-23] MEDS: FUROSEMIDE 40 MG TAB PO SCH (12:12)
== END 2022-05-23 13:00 | DRG 57 ==
LOC: M PM&R 12:20
PROVIDERS: ADMIT Physical Medicine & Rehabilitation; ATTEND Physical Medicine & Rehabilitation
DX: I69.351 Hemiplegia and hemiparesis following cerebral infarction affecting right dominant side (principal); I50.32 Chronic diastolic (congestive) heart failure; N39.0 Urinary tract infection, site not specified; I69.391 Dysphagia following cerebral infarction; R13.10 Dysphagia, unspecified; I69.320 Aphasia following cerebral infarction; N31.9 Neuromuscular dysfunction of bladder, unspecified; G40.909 Epilepsy, unspecified, not intractable, without status epilepticus; I48.91 Unspecified atrial fibrillation; E03.9 Hypothyroidism, unspecified; R26.89 Other abnormalities of gait and mobility; I11.0 Hypertensive heart disease with heart failure; E87.6 Hypokalemia; Z74.09 Other reduced mobility; Z74.1 Need for assistance with personal care; Z79.01 Long term (current) use of anticoagulants; Z79.82 Long term (current) use of aspirin; Z79.890 Hormone replacement therapy; Z79.899 Other long term (current) drug therapy; F41.9 Anxiety disorder, unspecified; F32.A Depression, unspecified; Z66 Do not resuscitate